=== PATIENT | female | born 1940 | race Caucasian/White ===

== ENCOUNTER → 2016-09-30 | Outpatient (CLI) | payer MEDICARE ==
--- NOTE | 2016-09-30 22:12 | US ---
EXAMINATION TYPE: US kidneys/renal and bladder DATE OF EXAM: 09/30/2016 2:41 PM COMPARISON: NONE CLINICAL HISTORY: 75-year-old female Right Flank Pain R10.9, intermittently; UTI with hematuria TECHNIQUE: Multiple sonographic images of the kidneys and bladder were obtained. FINDINGS: Right Kidney: 8.3 x 4.4 x 3.6 cm without hydronephrosis. There is a 1.1 cm echogenic lesion in the u pper pole. Left Kidney: 9.4 x 6.0 x 5.4 cm without hydronephrosis. No gross abnormality of the urine distended bladder. Both ureteral jets are visualized. Post Void Residual Volume: 4.1 mL, within normal limits. IMPRESSION: 1. No hydronephrosis. 2. No sonographic evidence for urinary retention. 3. A 1.1 cm echogenic lesion in the right upper pole. Differential considerations include an AML and a cortical defect with chronic scarring. As RCC can uncommonly present as an echogenic lesion, six-mo nth follow-up exam is recommended to reassess.
== END | disposition home or self-care (01) ==
LOC: RADUSWWP 13:09
PROVIDERS: ATTEND Internal Medicine
DX: N28.9 Disorder of kidney and ureter, unspecified (principal); R10.9 Unspecified abdominal pain
CPT/HCPCS: 76770

== ENCOUNTER → 2016-11-22 | Outpatient (CLI) | payer MEDICARE ==
[2016-11-22 16:47] LABS: Blood Urea Nitrogen 19 mg/dL (7-17); Non-African American GFR(MDRD) >60 (>60 ml/min/1.73 sqM)
--- NOTE | 2016-11-22 21:44 | CT ---
EXAMINATION TYPE: CT abdomen wo/w con DATE OF EXAM: 11/22/2016 COMPARISON: Ultrasound 09/30/2016 HISTORY: 75-year-old female with renal mass found on ultrasound. TECHNIQUE: Contiguous axial scanning of the abdomen before and after administration of 100 ml Omnipaq ue 300 IV contrast. Delayed images through the kidneys and coronal/sagittal reconstructions performe d. CT DLP: 471.40 mGycm Automated exposure control for dose reduction was used. FINDINGS: Heart is normal size without pericardial effusion. There is some patchy opacity in the inferior lingu la and right-sided Bochdalek hernia. No pleural effusion. A few subcentimeter hypodensities within the liver are too small for accurate CT characterization, li shira represent cysts. Cholecystectomy clips are present. Mild prominence to the bile duct with normal distal tapering likely on the basis of postcholecystecto my status. Portal venous system is patent. Mild diffuse low-density thickening of both adrenal glands. There may be some subtle underlying nodul arity on the left that could represent a lipid rich adrenal adenoma. A couple subcentimeter cortical hypodensities lower pole left kidney too small fractured CT character ization, probable cysts. Additional subcentimeter hypodensity posterior upper to midpole left kidney is similar. There is a small cortical defect posterior upper pole right kidney with associated calcification. No nephrolithiasis or hydronephrosis. Spleen and pancreas show no gross abnormality. No dilated small bowel, free fluid, or free air. No mesenteric or retroperitoneal lymphadenopathy. Mild atherosclerotic calcifications within the abdominal aorta. There is ectasia of the lower thoraci c aorta at 2.7 cm. Moderate scattered stool burden without pericolonic inflammatory change. Bones: No osseous destructive process. Mild multilevel degenerative disc disease. IMPRESSION: 1. THE RIGHT UPPER POLE RENAL LESION SEEN ON ULTRASOUND APPEARS TO CORRESPOND TO AN AREA OF CORTICAL SCARRING AND ASSOCIATED CALCIFICATIONS. NO SUSPICIOUS MASS IS SEEN. A 12 MONTH FOLLOW-UP ULTRASOUND C AN BE PERFORMED A PRECAUTIONARY MEASURE. 2. A FEW SUBCENTIMETER HYPODENSITIES IN THE LEFT KIDNEY ARE TOO SMALL FOR ACCURATE CT CHARACTERIZATIO N AND PROBABLY REPRESENT TINY CORTICAL CYSTS. 3. SOME PATCHY ATELECTASIS OR INFILTRATE IN THE INFERIOR LINGULA PARTIALLY SEEN.
== END | disposition home or self-care (01) ==
LOC: RADCTMAIN 16:06
PROVIDERS: ATTEND Urology
DX: N28.89 Other specified disorders of kidney and ureter (principal)
CPT/HCPCS: 82565; 84520; 74170; 36415; Q9967

== ENCOUNTER 2017-07-05 16:28 | Emergency (ER) | payer MEDICARE ==
[2017-07-05] MEDS ORDERED: LORazepam 2 MG/ML INJ IV STA (16:55)
[2017-07-05] MEDS ORDERED: hydrALAZINE HCL 20 MG/ML 1 ML VIAL IVP STA (16:56)
--- NOTE | 2017-07-05 16:59 | ED ---
General Adult HPI - General Chief complaint: Recheck/Abnormal Lab/Rx Stated complaint: Hypertension Time Seen by Provider: 07/05/17 16:30 Source: patient, RN notes reviewed Mode of arrival: ambulatory Limitations: no limitations - History of Present Illness Initial comments: This is a 76-year-old female presents emergency Department because her blood pressures high. Patient states she went to the foot doctor today and they indicated her blood pressure was high enough that she should get it checked today. Patient states she was a little bit lightheaded this morning but aside from that had no symptoms. Patient denies headache patient denies numbness or weakness. Patient denies any chest pain palpitations difficulty breathing or shortness of breath. Patient denies any peripheral edema patient denies any calf pain. Patient denies any abdominal pain. Patient denies being ill recently patient denies any recent fever chills or cough. - Related Data Home Medications Medication Instructions Recorded Confirmed Acetaminophen [Tylenol Arthritis] 650 mg PO BID PRN 07/05/17 07/05/17 Cholecalciferol (Vitamin D3) 2,000 unit PO DAILY 07/05/17 07/05/17 [Vitamin D3] Diltiazem HCl [Cartia Xt] 180 mg PO DAILY 07/05/17 07/05/17 Levothyroxine Sodium [Synthroid] 75 mcg PO DAILY 07/05/17 07/05/17 Multivitamins, Thera [Multivitamin 1 tab PO DAILY 07/05/17 07/05/17 (formulary)] Oyster Shell Calcium 500 mg PO DAILY 07/05/17 07/05/17 Pravastatin Sodium [Pravachol] 20 mg PO HS 07/05/17 07/05/17 busPIRone HCL 15 mg PO TID PRN 07/05/17 07/05/17 Allergies Allergy/AdvReac Type Severity Reaction Status Date / Time No Known Allergies Allergy Verified 07/05/17 17:14 Review of Systems ROS Statement: Those systems with pertinent positive or pertinent negative responses have been documented in the HPI. ROS Other: All systems not noted in ROS Statement are negative. Past Medical History Past Medical History: Hypertension History of Any Multi-Drug Resistant Organisms: None Reported Past Surgical History: No Surgical Hx Reported Past Psychological History: No Psychological Hx Reported Smoking Status: Never smoker Past Alcohol Use History: None Reported Past Drug Use History: None Reported General Exam - General Exam Comments Initial Comments: GENERAL: Patient is well-developed and well-nourished. Patient is nontoxic and well- hydrated and is in no acute distress. ENT: Neck is soft and supple. No significant lymphadenopathy is noted. Oropharynx is clear. Moist mucous membranes. Neck has full range of motion without eliciting any pain. EYES: The sclera were anicteric and conjunctiva were pink and moist. Extraocular movements were intact and pupils were equal round and reactive to light. Eyelids were unremarkable. PULMONARY: Unlabored respirations. Good breath sounds bilaterally. No audible rales rhonchi or wheezing was noted. CARDIOVASCULAR: There is a regular rate and rhythm without any murmurs gallops or rubs. ABDOMEN: Soft and nontender with normal bowel sounds. No palpable organomegaly was noted. There is no palpable pulsatile mass. SKIN: Skin is clear with no lesions or rashes and otherwise unremarkable. NEUROLOGIC: Patient is alert and oriented x3. Cranial nerves II through XII are grossly intact. Motor and sensory are also intact. Normal speech, volume and content. Symmetrical smile. MUSCULOSKELETAL: Normal extremities with adequate strength and full range of motion. No lower extremity swelling or edema. No calf tenderness. LYMPHATICS: No significant lymphadenopathy is noted PSYCHIATRIC: Normal psychiatric evaluation. Limitations: no limitations Course Vital Signs 07/05/17 07/05/17 07/05/17 16:33 16:44 17:34 Temperature 97.9 F Pulse Rate 85 78 81 Respiratory 18 17 Rate Blood Pressure 201/82 216/99 160/71 O2 Sat by Pulse 97 96 97 Oximetry 07/05/17 18:03 Temperature Pulse Rate 87 Respiratory 16 Rate Blood Pressure 156/73 O2 Sat by Pulse 95 Oximetry Medical Decision Making - Medical Decision Making EKG shows normal sinus rhythm at 74 bpm NC interval is 152 QRS is 78 QT interval is 400 QTC is 444. Patient's EKG shows no ST segment elevation or depression or T wave abnormalities are noted. I will begin to reevaluate the patient she was asymptomatic at this time. Patient blood pressure was 156 systolic and she states she is always in the 150s normally. Patient will follow-up with her primary medical care doctor. - Lab Data Result diagrams: 07/05/17 17:01 07/05/17 17:01 Lab Results 07/05/17 07/05/17 07/05/17 Range/Units 17:01 17:01 17:01 WBC 7.3 (3.8-10.6) k/uL RBC 4.38 (3.80-5.40) m/uL Hgb 13.7 (11.4-16.0) gm/dL Hct 42.6 (34.0-46.0) % MCV 97.3 (80.0-100.0) fL MCH 31.3 (25.0-35.0) pg MCHC 32.2 (31.0-37.0) g/dL RDW 12.2 (11.5-15.5) % Plt Count 260 (150-450) k/uL Neutrophils % 48 % Lymphocytes % 38 % Monocytes % 6 % Eosinophils % 5 % Basophils % 1 % Neutrophils # 3.5 (1.3-7.7) k/uL Lymphocytes # 2.8 (1.0-4.8) k/uL Monocytes # 0.4 (0-1.0) k/uL Eosinophils # 0.3 (0-0.7) k/uL Basophils # 0.1 (0-0.2) k/uL PT (9.0-12.0) sec INR (<1.2) APTT (22.0-30.0) sec Sodium 138 (137-145) mmol/L Potassium 4.4 (3.5-5.1) mmol/L Chloride 100 (98-107) mmol/L Carbon Dioxide 25 (22-30) mmol/L Anion Gap 13 mmol/L BUN 16 (7-17) mg/dL Creatinine 0.68 (0.52-1.04) mg/dL Est GFR (MDRD) Af Amer >60 (>60 ml/min/1.73 sqM) Est GFR (MDRD) Non-Af >60 (>60 ml/min/1.73 sqM) Glucose 98 (74-99) mg/dL Calcium 9.8 (8.4-10.2) mg/dL Magnesium 1.8 (1.6-2.3) mg/dL Total Bilirubin 0.4 (0.2-1.3) mg/dL AST 21 (14-36) U/L ALT 23 (9-52) U/L Alkaline Phosphatase 54 (38-126) U/L Total Creatine Kinase 107 (30-135) U/L CK-MB (CK-2) 1.7 (0.0-2.4) ng/mL CK-MB (CK-2) Rel Index 1.6 Troponin I <0.012 (0.000-0.034) ng/mL Total Protein 6.8 (6.3-8.2) g/dL Albumin 4.2 (3.5-5.0) g/dL 07/05/17 Range/Units 17:01 WBC (3.8-10.6) k/uL RBC (3.80-5.40) m/uL Hgb (11.4-16.0) gm/dL Hct (34.0-46.0) % MCV (80.0-100.0) fL MCH (25.0-35.0) pg MCHC (31.0-37.0) g/dL RDW (11.5-15.5) % Plt Count (150-450) k/uL Neutrophils % % Lymphocytes % % Monocytes % % Eosinophils % % Basophils % % Neutrophils # (1.3-7.7) k/uL Lymphocytes # (1.0-4.8) k/uL Monocytes # (0-1.0) k/uL Eosinophils # (0-0.7) k/uL Basophils # (0-0.2) k/uL PT 9.9 (9.0-12.0) sec INR 1.0 (<1.2) APTT 23.3 (22.0-30.0) sec Sodium (137-145) mmol/L Potassium (3.5-5.1) mmol/L Chloride (98-107) mmol/L Carbon Dioxide (22-30) mmol/L Anion Gap mmol/L BUN (7-17) mg/dL Creatinine (0.52-1.04) mg/dL Est GFR (MDRD) Af Amer (>60 ml/min/1.73 sqM) Est GFR (MDRD) Non-Af (>60 ml/min/1.73 sqM) Glucose (74-99) mg/dL Calcium (8.4-10.2) mg/dL Magnesium (1.6-2.3) mg/dL Total Bilirubin (0.2-1.3) mg/dL AST (14-36) U/L ALT (9-52) U/L Alkaline Phosphatase (38-126) U/L Total Creatine Kinase (30-135) U/L CK-MB (CK-2) (0.0-2.4) ng/mL CK-MB (CK-2) Rel Index Troponin I (0.000-0.034) ng/mL Total Protein (6.3-8.2) g/dL Albumin (3.5-5.0) g/dL Disposition Clinical Impression: Hypertensive urgency Disposition: HOME SELF-CARE Condition: Good Instructions: Hypertension (ED) Additional Instructions: Patient needs to follow-up with her primary medical care doctor. Patient needs to take her blood pressure before every meal and before bed and record this so the primary medical care doctor can see her blood pressure over few days. Referrals: Georgia Mtz MD [Primary Care Provider] - 1-2 days Time of Disposition: 18:10
[2017-07-05 17:10] LABS: Basophils # (A) 0.1 k/uL (0-0.2); Basophils % (A) 1 %; Eosinophils # (A) 0.3 k/uL (0-0.7); Eosinophils % (A) 5 %; HCT 42.6 % (34.0-46.0); HGB 13.7 gm/dL (11.4-16.0); Lymphocytes # (A) 2.8 k/uL (1.0-4.8); Lymphocytes % (A) 38 %; MCH 31.3 pg (25.0-35.0); MCHC 32.2 g/dL (31.0-37.0); MCV 97.3 fL (80.0-100.0); Mean Platelet Volume 6.9; Monocytes # (A) 0.4 k/uL (0-1.0); Monocytes % (A) 6 %; Neutrophils # (A) 3.5 k/uL (1.3-7.7); Neutrophils % (A) 48 %; Platelet Count 260 k/uL (150-450); RBC 4.38 m/uL (3.80-5.40); RDW 12.2 % (11.5-15.5); WBC 7.3 k/uL (3.8-10.6)
[2017-07-05 17:18] LABS: Partial Thromboplastin Time 23.3 sec (22.0-30.0); Prothrombin Time 9.9 sec (9.0-12.0)
[2017-07-05 17:22] LABS: ALT 23 U/L (9-52); AST 21 U/L (14-36); Albumin 4.2 g/dL (3.5-5.0); Alkaline Phosphatase 54 U/L (38-126); Anion Gap 13 mmol/L; Blood Urea Nitrogen 16 mg/dL (7-17); Calcium 9.8 mg/dL (8.4-10.2); Carbon Dioxide 25 mmol/L (22-30); Chloride 100 mmol/L (98-107); Glucose 98 mg/dL (74-99); Magnesium 1.8 mg/dL (1.6-2.3); Potassium 4.4 mmol/L (3.5-5.1); Sodium 138 mmol/L (137-145); Total Bilirubin 0.4 mg/dL (0.2-1.3); Total Protein 6.8 g/dL (6.3-8.2)
[2017-07-05 17:31] LABS: Creatine Kinase 107 U/L (30-135)
[2017-07-05 17:43] LABS: Creatine Kinase MB 1.7 ng/mL (0.0-2.4); Troponin I <0.012 ng/mL (0.000-0.034)
--- NOTE | 2017-07-05 17:46 | XR ---
EXAMINATION TYPE: XR chest 2V DATE OF EXAM: 07/05/2017 COMPARISON: NONE HISTORY: Chest pain and hypertension TECHNIQUE: Frontal and lateral views of the chest are obtained. FINDINGS: There is no focal air space opacity, pleural effusion, or pneumothorax seen. The cardiac silhouette size is within normal limits. There are overlying cardiac leads. Patient is rotated. Promi nent lung volume may be indicative of COPD. There is eventration of the hemidiaphragms. Minimal patch y density may represent subsegmental atelectasis at the lung bases. The osseous structures are inta ct. IMPRESSION: Suspect subsegmental atelectasis at the lung bases. Follow-up as indicated.
[2017-07-05 18:36] VITALS: BP 155/74; RESP 18; TEMP 98.3
[2017-07-05 18:39] VITALS: PULSE 87
== END 2017-07-05 18:44 | disposition home or self-care (01) ==
LOC: EC 16:28
DX: I16.0 Hypertensive urgency (principal); I10 Essential (primary) hypertension; R42 Dizziness and giddiness; Z79.899 Other long term (current) drug therapy
CPT/HCPCS: 36415; 93005; 80053; 82550; 82553; 83735; 84484; 85025; 85610; 85730; 71046; 99283; 96374; 96375; J2060; J0360

== ENCOUNTER → 2018-06-10 | Outpatient (CLI) | payer MEDICARE ==
[2018-06-10 09:01] LABS: Basophils # (A) 0.1 k/uL (0-0.2); Basophils % (A) 1 %; Eosinophils # (A) 0.2 k/uL (0-0.7); Eosinophils % (A) 3 %; HCT 43.7 % (34.0-46.0); HGB 14.1 gm/dL (11.4-16.0); Lymphocytes % (A) 29 %; MCH 31.5 pg (25.0-35.0); MCHC 32.3 g/dL (31.0-37.0); MCV 97.7 fL (80.0-100.0); Mean Platelet Volume 6.2; Monocytes # (A) 0.4 k/uL (0-1.0); Monocytes % (A) 5 %; Neutrophils # (A) 4.1 k/uL (1.3-7.7); Neutrophils % (A) 59 %; Platelet Count 302 k/uL (150-450); RBC 4.47 m/uL (3.80-5.40); RDW 12.7 % (11.5-15.5); WBC 6.9 k/uL (3.8-10.6)
[2018-06-10 09:13] LABS: Potassium 4.6 mmol/L (3.5-5.1)
== END | disposition home or self-care (01) ==
LOC: LABPAT 08:04
PROVIDERS: ATTEND Obstetrics & Gynecology
DX: Z01.818 Encounter for other preprocedural examination (principal); N81.10 Cystocele, unspecified; I10 Essential (primary) hypertension; Z01.812 Encounter for preprocedural laboratory examination
CPT/HCPCS: 36415; 80051; 82565; 84520; 85025; 87077; 87086; 87186; 93005

== ENCOUNTER 2018-06-19 07:31 | Day surgery (SDC) | payer MEDICARE ==
[~2018-06-19 07:31] MED LIST: DEXAMETHASONE SOD PHOSPHATE 10 MG/ML 1 ML VIAL IV ONE; HYDROmorphone 0.5 MG/0.5 ML SYRINGE IVP PRN; MIDAZOLAM (PF) 2 MG/2 ML VIAL IV PRN; ONDANSETRON 4 MG/2 ML VIAL IVP ONE; ceFAZolin IN SWFI 2 GM/20 ML SYRINGE IVP ONE
[2018-06-19 08:02] VITALS: RESP 16
[2018-06-19] MEDS ORDERED: LIDOCAINE 1% 20 ML VIAL (10MG/ML) FOR IV START SQ ONE (08:15)
[2018-06-19] MEDS: LACTATED RINGERS 1,000 ML IV SCH ×2 (08:15→19:30)
[2018-06-19] MEDS ORDERED: MIDAZOLAM 2 MG/2 ML VIAL ONE (09:28)
[2018-06-19] MEDS ORDERED: LIDOCAINE 1% INJ 10MG/ML (20 ML MDV) ONE (09:28)
[2018-06-19] MEDS ORDERED: PROPOFOL 10 MG/ML 20 ML VIAL IV ONE (09:28)
[2018-06-19] MEDS ORDERED: MORPHINE SULFATE (PF) 0.3 MG/0.3 ML SYR ONE (09:28)
[2018-06-19] MEDS ORDERED: ePHEDrine SULFATE/0.9% NACL/PF 50 MG/5 ML SYRINGE IV ONE (09:28)
[2018-06-19] MEDS ORDERED: VASOPRESSIN 20 UNIT/ML 1 ML VIAL IM ONE (09:49)
[2018-06-19] MEDS ORDERED: BACITRACIN 500 UNIT/GM OINT 28.4 GM TUBE TOPICAL ONE (10:06)
--- NOTE | 2018-06-19 10:12 | P.OP ---
Date of Procedure: 06/19/18 Preoperative Diagnosis: Symptomatic grade 3 cystocele Postoperative Diagnosis: Same Procedure(s) Performed: Anterior colporrhaphy Anesthesia: spinal Surgeon: Janet Sofia Sausage Canner #1: Ragini Cassidy Estimated Blood Loss (ml): 25 IV fluids (ml): 500 Urine output (ml): 200 Pathology: none sent Condition: stable Disposition: PACU Operative Findings: Grade 2 rectocele, asymptomatic Description of Procedure: Patient is brought to the operating room where a spinal with Duramorph is administered. She's placed in the dorsal lithotomy position. The vaginal vault and perineal bodies are all prepped and draped in usual sterile fashion. The appropriate timeout is performed to assure proper patient and procedural identification. The bladder is drained for approximately 200 mL of clear yellow urine. Weighted speculum was placed into the vagina and the uterosacral cardinal ligament dimples are identified and grasped with Allis clamps. Please note that antibiotics are given prophylactically, and stockings applied to the legs. A scalpel is used to incise the tissue between the 2 Allis clamps. The anterior vaginal mucosa is injected with a dilute Pitressin solution. Metzenbaum scissors are used in the midline to undermine the mucosa to the apex of the defects, approximate 1.5 cm inferior to the urethra. The edges of the mucosa are held with Allis clamps and a fanlike fashion. A sponge rolled finger is used to sweep the overlying mucosa from the underlying fascial plane. 2-0 Vicryl is used in the midline and interrupted fashion to bring the fascial edges together, thereby completely reducing the cystocele. The redundant vaginal mucosa is trimmed with Metzenbaum scissors. Sanders catheter is placed, urine is clear. The mucosa is reapproximated in a running locking stitch of 2-0 Vicryl. The vagina is packed with a iodophor gauze with basic tracing. Urine is clear. Total estimated blood loss 25 mL's. Incidentally, a small grade 2 rectocele is noted. This was asymptomatic and not surgically corrected. All sponge needle and enhancement counts are correct at the end of the procedure. Patient is brought back to the recovery room in very good condition with stable vital signs including blood pressure 98/54, pulse 63.
[2018-06-19] MEDS ORDERED: diphenhydrAMINE 50 MG/ML 1 ML VIAL IVP PRN (10:13)
[2018-06-19] MEDS ORDERED: SIMETHICONE 80 MG CHEWABLE PO PRN (10:13)
[2018-06-19 11:22] VITALS: BMI 23.6
[2018-06-19] MEDS ORDERED: NALBUPHINE 10 MG/ML (1 ML AMP) IV PRN (13:49)
[2018-06-19] MEDS ORDERED: NALOXONE 0.4 MG/ML 1 ML VIAL IV PRN (13:49)
[2018-06-19] MEDS: IBUPROFEN 600 MG TAB PO PRN (19:29)
[2018-06-19] MEDS ORDERED: ACETAMINOPHEN TAB 500 MG TAB PO PRN (21:13)
[2018-06-20] MEDS: IBUPROFEN 600 MG TAB PO PRN (06:50)
--- NOTE | 2018-06-20 07:15 | P.PN ---
Progress Note - Text Progress Note Date: 06/20/18 Patient's postop day 1 from cystocele repair with Duramorph spinal. She is doing well. She is able to ambulate. Normal lower extremities, no lower extremity numbness or tingling. Sanders catheter still in place per surgical team. She has minimal pruritus. Site is clean and dry. Anesthesia will sign off please contact us if she had any issues or questions.
--- NOTE | 2018-06-20 07:27 | P.DS ---
Providers Date of admission: t This is a 77-year-old white female who presented with an increasingly symptomatic cystocele. After options were discussed, she elected to proceed with surgical repair. Please see dictated history and physical for details. She underwent a cystocele repair under my care yesterday. Estimated blood loss 25 mL's. Vagina was packed with iodoform gauze, Sanders catheter placed. Surgery was unremarkable, please see dictated operative note for details. This morning the Sanders catheter has been removed. Vaginal packing is removed. Patient is enjoying a regular diet for breakfast. We will proceed with void, we will measure the void and the postvoid residual. Plan is for discharge home later today when residual less than 100. Patient is judged to be in very good condition for discharge home. She will follow-up with me in the office in 2 weeks. We have reminded her no intercourse , tampons or douching. She will continue taking her home meds upon discharge. I've asked her to call me with any fevers shakes or chills, foul smelling or bloody vaginal drainage, with the passage of large blood clots, with any pain not alleviated by [id number]-[id number] products, with any urinary retention, or indeed with any concerns. Extremities are negative. Chest is clear. Attending physician: Janet Sofia Primary care physician: [facility] Course: This is a 77-year-old white female who presented with an increasingly symptomatic cystocele. After options were discussed, she elected to proceed with surgical repair. Please see my dictated history and physical for details. Patient underwent a cystocele repair under my care yesterday. There was an estimated blood loss recorded of 25 mL's. She did well intraoperatively, the vagina was packed with iodoform gauze Sanders catheter was placed. Please see dictated operative note for details. This morning the patient is doing well. Sanders catheter and vaginal packing had been removed. She is enjoying a regular diet for breakfast. We are awaiting spontaneous void, which will be measured along with post void residual. Plan is for discharge home later today pending residual volumes. Patient is judged to be in very good condition for discharge home. She will follow-up with me in the office in 2 weeks. I have reminded her no intercourse , tampons or douching. Clean pad as needed. Vnlq-gaa-cawzsmw products will be used as needed for pain, Aleve ibuprofen or Advil. She will call me with any fevers shakes or chills, urinary retention, vaginal bleeding, with any pain not alleviated by njfv-xwn-apjgshx products, or indeed with any concerns. Patient Condition at Discharge: Good Plan - Discharge Summary Discharge Rx Participant: No New Discharge Prescriptions: No Action Oyster Shell Calcium 500 mg PO DAILY Multivitamins, Thera [Multivitamin (formulary)] 1 tab PO DAILY Levothyroxine Sodium [Synthroid] 75 mcg PO DAILY Acetaminophen [Tylenol Arthritis] 650 mg PO BID PRN PRN Reason: Pain busPIRone HCL 15 mg PO TID PRN PRN Reason: Anxiety Pravastatin Sodium [Pravachol] 20 mg PO HS Cholecalciferol (Vitamin D3) [Vitamin D3] 2,000 unit PO DAILY Omeprazole 20 mg PO DAILY Losartan Potassium [Cozaar] 100 mg PO DAILY Diltiazem HCl [Cartia Xt] 120 mg PO DAILY Sulfamethox-Tmp 800-160Mg [Bactrim DS 800-160 mg] 1 tab PO Q12HR [id number] [Excedrin] 2 each PO Q6HR PRN PRN Reason: Pain Discharge Medication List Acetaminophen [Tylenol Arthritis] 650 mg PO BID PRN 07/05/17 [History] Cholecalciferol (Vitamin D3) [Vitamin D3] 2,000 unit PO DAILY 07/05/17 [History] Levothyroxine Sodium [Synthroid] 75 mcg PO DAILY 07/05/17 [History] Multivitamins, Thera [Multivitamin (formulary)] 1 tab PO DAILY 07/05/17 [History ] Oyster Shell Calcium 500 mg PO DAILY 07/05/17 [History] Pravastatin Sodium [Pravachol] 20 mg PO HS 07/05/17 [History] busPIRone HCL 15 mg PO TID PRN 07/05/17 [History] [id number] 151-200-10Wf [Excedrin] 2 each PO Q6HR PRN 06/14/18 [History] Diltiazem HCl [Cartia Xt] 120 mg PO DAILY 06/14/18 [History] Losartan Potassium [Cozaar] 100 mg PO DAILY 06/14/18 [History] Omeprazole 20 mg PO DAILY 06/14/18 [History] Sulfamethox-Tmp 800-160Mg [Bactrim DS 800-160 mg] 1 tab PO Q12HR 06/14/18 [ History] Follow up Appointment(s)/Referral(s): Janet Sofia MD [STAFF PHYSICIAN] - 2 Weeks Discharge Disposition: HOME SELF-CARE
[2018-06-20 07:59] VITALS: BP 128/78; PULSE 73; TEMP 97.5
== END 2018-06-20 10:30 | disposition home or self-care (01) ==
LOC: OR 07:31 → EDSTATUS 09:10 → 4FBP 10:14 → OR 06-20 10:30
PROVIDERS: ATTEND Obstetrics & Gynecology
DX: N81.10 Cystocele, unspecified (principal); N81.6 Rectocele; I10 Essential (primary) hypertension; F41.9 Anxiety disorder, unspecified; M19.90 Unspecified osteoarthritis, unspecified site; K21.9 Gastro-esophageal reflux disease without esophagitis; E04.9 Nontoxic goiter, unspecified; M85.80 Other specified disorders of bone density and structure, unspecified site; Z90.710 Acquired absence of both cervix and uterus; Z79.2 Long term (current) use of antibiotics; Z79.82 Long term (current) use of aspirin; Z79.890 Hormone replacement therapy; Z79.899 Other long term (current) drug therapy
CPT/HCPCS: 57240; 86900; 86901; 86850; J1100; J2405; J0690

== ENCOUNTER 2019-12-18 20:15 | Emergency (ER) | payer MEDICARE ==
[2019-12-18 20:21] VITALS: RESP 18; TEMP 98
--- NOTE | 2019-12-18 20:48 | ED ---
General Adult HPI - General Chief complaint: Urogenital Stated complaint: Post Op Unable to Void Time Seen by Provider: 12/18/19 20:24 Source: patient, family, RN notes reviewed Mode of arrival: wheelchair - History of Present Illness Initial comments: 78-year-old female with a past medical history of hypertension presents to the emergency room for a chief complaint of lower abdominal discomfort. Patient reports that she had a uterine prolapse surgery done laparoscopically and vaginally yesterday at [facility] [place]. Patient was released today around 2 PM. Family reports that since that time patient has not had any urine output. Patient has a suprapubic catheter placed. Patient states that she feels very bloated and feels constipated. States she is passing gas. States her last bowel movement was 2 days ago. Patient reports she was given Toradol in the hospital and has not been on opioids. Patient has not had any fevers or chills.Patient has no other complaints at this time including shortness of breath, chest pain, abdominal pain, nausea or vomiting, headache, or visual changes. - Related Data Home Medications Medication Instructions Recorded Confirmed Levothyroxine Sodium [Synthroid] 75 mcg PO DAILY 07/05/17 12/18/19 Multivitamins, Thera [Multivitamin 1 tab PO DAILY 07/05/17 12/18/19 (formulary)] Pravastatin Sodium [Pravachol] 20 mg PO HS 07/05/17 12/18/19 RX: busPIRone HCL 15 mg PO BID 07/05/17 12/18/19 Losartan Potassium [Cozaar] 100 mg PO 1200 06/14/18 12/18/19 RX: Omeprazole 20 mg PO DAILY 06/14/18 12/18/19 Diltiazem HCl [Cartia Xt] 180 mg PO DAILY 12/18/19 12/18/19 HYDROcodone/APAP 5-325MG [[place] 1 tab PO BID PRN 12/18/19 12/18/19 5-325] RX: Cholecalciferol [Vitamin D3 1,000 unit PO DAILY 12/18/19 12/18/19 (25 Mcg = 1000 Iu)] RX: Docusate [Colace] 100 mg PO BID PRN 12/18/19 12/18/19 RX: Ibuprofen [Motrin] 600 mg PO Q6H PRN 12/18/19 12/18/19 Ubidecarenone [Co Q-10] 100 mg PO DAILY 12/18/19 12/18/19 Allergies Allergy/AdvReac Type Severity Reaction Status Date / Time No Known Allergies Allergy Verified 12/18/19 20:21 Review of Systems ROS Statement: Those systems with pertinent positive or pertinent negative responses have been documented in the HPI. ROS Other: All systems not noted in ROS Statement are negative. Past Medical History Past Medical History: Hypertension Additional Past Medical History / Comment(s): VARICOSE VEINS, KLEBSIELLA PNEUMONIAE IN URINE- TAKING RX PER DR PERSAUD., CYSTOCELE History of Any Multi-Drug Resistant Organisms: None Reported Date of last positivie culture/infection: None MDRO Source:: None Past Surgical History: No Surgical Hx Reported Additional Past Surgical History / Comment(s): surgery for prolapsed uterus Past Anesthesia/Blood Transfusion Reactions: Postoperative Nausea & Vomiting (PONV) Past Psychological History: No Psychological Hx Reported Smoking Status: Never smoker Past Alcohol Use History: None Reported Past Drug Use History: None Reported - Past Family History Mother Family Medical History: Cancer Additional Family Medical History / Comment(s): UTERINE CANCER Brother(s) Family Medical History: Cancer Additional Family Medical History / Comment(s): PROSTATE CANCER Sister(s) Family Medical History: Cancer Additional Family Medical History / Comment(s): BONE AND COLON CANCER General Exam General appearance: alert, in no apparent distress Head exam: Present: atraumatic, normocephalic, normal inspection Eye exam: Present: normal appearance, PERRL, EOMI. Absent: scleral icterus, conjunctival injection, periorbital swelling ENT exam: Present: normal exam, mucous membranes moist Neck exam: Present: normal inspection. Absent: tenderness, meningismus, lymphadenopathy Respiratory exam: Present: normal lung sounds bilaterally. Absent: respiratory distress, wheezes, rales, rhonchi, stridor Cardiovascular Exam: Present: regular rate, normal rhythm, normal heart sounds. Absent: systolic murmur, diastolic murmur, rubs, gallop, clicks GI/Abdominal exam: Present: soft, normal bowel sounds. Absent: distended, tenderness, guarding, rebound, rigid Course Vital Signs 12/18/19 12/18/19 20:17 22:24 Temperature 98 F Pulse Rate 83 89 Respiratory 18 Rate Blood Pressure 118/58 135/60 O2 Sat by Pulse 98 95 Oximetry Medical Decision Making - Medical Decision Making Vitals are stable. Abdomen is tender and distended. CBC is unremarkable. A C MP does show an elevation in amylase as well as hyponatremia of 126. patient was given a 500 mL bolus of normal saline. Urinalysis shows red blood cells which is likely secondary to patient's recent surgery. No obvious infection 150 mL of urine was obtained from suprapubic catheter. CT abdomen and pelvis was obtained and there is some descent of the rectum and vagina consistent with vaginal and r ectal prolapse, intact urinary bladder. There is a suprapubic peritoneal drainage catheter in good position. No evidence of pelvic abscess. There is a distended fluid-filled loops of large bowel consistent with large bowel ileus. Small amount of intraperitoneal fluid in the pericolic gutters. Pain is intractable at this time. Given ileus and hyponatremia patient will be transferred to [facility] where she had her surgery. Her family is agreeable to this. Dr Jeffers accepting physician. - Lab Data Result diagrams: 12/18/19 21:11 12/18/19 21:11 Lab Results 12/18/19 12/18/19 12/18/19 Range/Units 21:11 21:11 21:11 WBC 7.9 (3.8-10.6) k/uL RBC 3.73 L (3.80-5.40) m/uL Hgb 12.0 (11.4-16.0) gm/dL Hct 35.4 (34.0-46.0) % MCV 95.0 D (80.0-100.0) fL MCH 32.3 (25.0-35.0) pg MCHC 34.0 (31.0-37.0) g/dL RDW 12.4 (11.5-15.5) % Plt Count 329 (150-450) k/uL Neutrophils % Not Reportable Neutrophils % (Manual) 70 % Band Neutrophils % 23 % Lymphocytes % Not Reportable Lymphocytes % (Manual) 4 % Monocytes % Not Reportable Monocytes % (Manual) 3 % Eosinophils % Not Reportable Basophils % Not Reportable Neutrophils # Not Reportable Neutrophils # (Manual) 7.30 (1.3-7.7) k/uL Lymphocytes # Not Reportable Lymphocytes # (Manual) 0.32 L (1.0-4.8) k/uL Monocytes # Not Reportable Monocytes # (Manual) 0.24 (0-1.0) k/uL Eosinophils # Not Reportable Basophils # Not Reportable Nucleated RBCs 0 (0-0) /100 WBC Manual Slide Review Performed Hypochromasia (manual) Present Anisocytosis (manual) Present Sodium 126 L (137-145) mmol/L Potassium 3.6 (3.5-5.1) mmol/L Chloride 93 L (98-107) mmol/L Carbon Dioxide 23 (22-30) mmol/L Anion Gap 10 mmol/L BUN 23 H (7-17) mg/dL Creatinine 0.77 (0.52-1.04) mg/dL Est GFR (CKD-EPI)AfAm 84 (>60 ml/min/1.73 sqM) Est GFR (CKD-EPI)NonAf 73 (>60 ml/min/1.73 sqM) Glucose 129 H (74-99) mg/dL Calcium 8.9 (8.4-10.2) mg/dL Total Bilirubin 1.6 H (0.2-1.3) mg/dL AST 32 (14-36) U/L ALT 22 (4-34) U/L Alkaline Phosphatase 98 (38-126) U/L Total Protein 5.4 L (6.3-8.2) g/dL Albumin 3.3 L (3.5-5.0) g/dL Amylase 494 H* (30-110) U/L Lipase 90 (23-300) U/L Urine Color Dark Yellow Urine Appearance Cloudy H (Clear) Urine pH 5.5 (5.0-8.0) Ur Specific [place] 1.020 (1.001-1.035) Urine Protein Trace H (Negative) Urine Glucose (UA) Negative (Negative) Urine Ketones Negative (Negative) Urine Blood Large H (Negative) Urine Nitrite Negative (Negative) Urine Bilirubin Negative (Negative) Urine Urobilinogen 2.0 (<2.0) mg/dL Ur Leukocyte Esterase Trace H (Negative) Urine RBC >182 H (0-5) /hpf Urine WBC 16 H (0-5) /hpf Hyaline Casts 4 H (0-2) /lpf Urine Mucus Rare H (None) /hpf Disposition Clinical Impression: Postoperative abdominal pain, Paralytic ileus of large intestine, Hyponatremia, Elevated amylase Disposition: OTHER INSTITUTION NOT DEFINED Condition: Fair Is patient prescribed a controlled substance at d/c from ED?: No Referrals: Georgia Mtz MD [Primary Care Provider] - 1-2 days Time of Disposition: 23:51 - Out of Hospital Transfer - Req. Specs Out of Hospital Transfer - Requested Specifics: Other Emergency Center (Formerly [facility])
[2019-12-18] MEDS ORDERED: MORPHINE SULFATE 4 MG/ML SYRINGE IVP STA (21:13)
[2019-12-18] MEDS ORDERED: ONDANSETRON ODT 4 MG TAB PO STA (21:13)
[2019-12-18 21:29] LABS: Appearance,Urine Cloudy (Clear); Bilirubin,Urine Negative (Negative); Blood,Urine Large (Negative); Color,Urine Dark Yellow; Glucose,Urine (UA) Negative (Negative); Hyaline Casts,Urine 4 /lpf (0-2); Ketones,Urine Negative (Negative); Leukocyte Esterase,Urine Trace (Negative); Mucus,Urine Rare /hpf; Nitrite,Urine Negative (Negative); PH, Urine 5.5 (5.0-8.0); Protein,Urine Trace (Negative); RBC,Urine >182 /hpf (0-5); WBC,Urine 16 /hpf (0-5)
[2019-12-18 21:33] LABS: Albumin 3.3 g/dL (3.5-5.0); Calcium 8.9 mg/dL (8.4-10.2); Potassium 3.6 mmol/L (3.5-5.1); Total Bilirubin 1.6 mg/dL (0.2-1.3); Total Protein 5.4 g/dL (6.3-8.2)
--- NOTE | 2019-12-18 21:40 | XR ---
EXAMINATION TYPE: XR KUB DATE OF EXAM: 12/18/2019 COMPARISON: NONE HISTORY: Postop TECHNIQUE: 2 views supine FINDINGS: There is no sign of intestinal obstruction or pneumoperitoneum. There is pigtail drainage c atheter over the mid pelvis. There are clips from cholecystectomy. Lung bases are clear. There is no evidence of abdominal mass. There are no pathologic calcifications over the kidneys. IMPRESSION: Nonacute abdomen.
[2019-12-18 21:45] LABS: HCT 35.4 % (34.0-46.0); MCH 32.3 pg (25.0-35.0); Mean Platelet Volume 7.2; Platelet Count 329 k/uL (150-450); RBC 3.73 m/uL (3.80-5.40); RDW 12.4 % (11.5-15.5); WBC 7.9 k/uL (3.8-10.6)
[2019-12-18] MEDS ORDERED: SODIUM CHLORIDE 0.9% 500 ML 500 ML IV STA (22:08)
[2019-12-18 22:23] LABS: Band Neutrophils % 23 %; Lymphocytes # (M) 0.32 k/uL (1.0-4.8); Monocytes # (M) 0.24 k/uL (0-1.0); Neutrophils % (M) 70 %; Nucleated Red Blood Cells 0 /100 WBC (0-0); Total Cells Counted 100
[2019-12-18 22:24] LABS: Anisocytosis (M) Present; Hypochromasia (M) Present
--- NOTE | 2019-12-18 22:40 | CT ---
EXAMINATION TYPE: CT abdomen pelvis w con DATE OF EXAM: 12/18/2019 COMPARISON: 11/22/2016 HISTORY: unable to urinate post-op prolapsed uterus procedure. CT DLP: 712.7 mGycm Automated exposure control for dose reduction was used. CONTRAST: Performed with IV Contrast, patient injected with 100 mL of Isovue 300. There is some patchy atelectasis at the lung bases. Heart is enlarged. There is no pericardial effusi on. There are clips from cholecystectomy. Liver shows 1 cm cyst in the anterior right lobe. There is mild dilation of the common bile duct up to 1.7 cm. Intrahepatic bile ducts are not significantly dil ated. Spleen is intact. The stomach is intact. There is small hiatal hernia. There is no evidence of pancreatic mass. There is no adrenal mass. Kidneys show satisfactory contrast opacification. There is no hydronephrosi s. Ureters are not dilated. There is no retroperitoneal adenopathy. There is suprapubic drainage cath eter in the anterior lower abdomen. There is soft tissue subcutaneous air bubbles consistent with rec ent surgery in the anterior lower abdomen. There are a few air bubbles in the peritoneal cavity anter ior to the urinary bladder. Bladder distends smoothly. There is no inguinal hernia. I see no evidence of a pelvic mass. There is some descent of the rectum. There is probably distended of the vagina als o. I see no mesenteric edema. There is no ascites. There is retained fluid in the ascending colon and tr ansverse colon. I see no intestinal wall thickening. Appendix is not definitely seen. No definite sig n of thickened appendix. Lumbar vertebra have normal alignment. There is no compression fracture. There is no significant disc space narrowing. Bony pelvis is intact. The hip joints appear intact. There is tiny amount of fluid in the right and left paracolic gutter. IMPRESSION: There is some descent of the rectum and vagina consistent with vaginal and rectal prolapse. Intact ur inary bladder. Suprapubic peritoneal drainage catheter in the lower anterior pelvis in good position. No evidence of pelvic abscess. Patchy atelectasis at both lung bases. Distended fluid-filled loops of large bowel consistent with large bowel ileus. Small amount of intrap eritoneal fluid in the paracolic gutters.
[2019-12-19] MEDS ORDERED: METOCLOPRAMIDE 5 MG/ML 2 ML VIAL IVP STA (00:16)
[2019-12-19] MEDS ORDERED: ONDANSETRON 4 MG/2 ML VIAL IVP STA (00:16)
[2019-12-19] MEDS ORDERED: HYDROmorphone 0.5 MG/0.5 ML SYRINGE IVP STA (00:16)
[2019-12-19 00:49] VITALS: BP 109/92; PULSE 105
== END 2019-12-19 01:05 | disposition other institution (70) ==
LOC: EC 20:15
DX: K56.0 Paralytic ileus (principal); G89.18 Other acute postprocedural pain; E87.1 Hypo-osmolality and hyponatremia; R74.8 Abnormal levels of other serum enzymes; I10 Essential (primary) hypertension; Z79.899 Other long term (current) drug therapy; Z96.0 Presence of urogenital implants; R34 Anuria and oliguria
CPT/HCPCS: 51798; 36415; 80053; 82150; 83690; 85025; 81001; 87086; 74018; 74177; 99285; 96374; 96375 ×2; 96361; J2270; Q9967

== ENCOUNTER → 2021-01-05 | Outpatient (CLI) | payer MEDICARE ==
--- NOTE | 2021-01-05 15:00 | US ---
EXAMINATION TYPE: US venous doppler duplex LE RT DATE OF EXAM: 01/05/2021 2:52 PM COMPARISON: NONE CLINICAL HISTORY: M79.661 pain in limb, R22.4 swelling. Patient states she fell off a few steps from a latter and feels a pull. No redness. No swelling. Not on blood thinners. SIDE PERFORMED: Right TECHNIQUE: The lower extremity deep venous system is examined utilizing real time linear array sonog henry with graded compression, doppler sonography and color-flow sonography. VESSELS IMAGED: Common Femoral Vein Deep Femoral Vein Greater Saphenous Vein * Femoral Vein Popliteal Vein Small Saphenous Vein * Proximal Calf Veins (* superficial vessels) Right Leg: Negative for DVT IMPRESSION: No evidence for DVT.
== END | disposition home or self-care (01) ==
LOC: RADUSWWP 14:33
PROVIDERS: ATTEND Internal Medicine
DX: M79.661 Pain in right lower leg (principal); W10.8XXA Fall (on) (from) other stairs and steps, initial encounter

== ENCOUNTER 2022-08-23 11:07 | Emergency (ER) | payer MEDICARE ==
[2022-08-23 11:37] VITALS: BP 164/85; PULSE 89; RESP 18; TEMP 98
--- NOTE | 2022-08-23 11:56 | ED ---
ENT HPI - General Chief complaint: ENT Stated complaint: cough Time Seen by Provider: 08/23/22 11:47 Source: patient, family, RN notes reviewed, old records reviewed Mode of arrival: wheelchair Limitations: no limitations - History of Present Illness Initial comments: This is a nontoxic-appearing 81-year-old female, alert and oriented, brought in by family with complaints of foreign body sensation in her throat. Patient states she was taking her medications a couple of hours ago and feels like a pill is stuck in her throat. Denies any vomiting or chest pain. No difficulty breathing or swallowing. States that this has not occurred in the past. Sensation seems to be improving. MD complaint: difficulty swallowing -: hour(s) (2) Location: throat Severity scale (1-10): 0 Consistency: other (improving) - Related Data Home Medications Medication Instructions Recorded Confirmed Levothyroxine Sodium [Synthroid] 75 mcg PO DAILY 07/05/17 12/18/19 Multivitamins, Thera [Multivitamin 1 tab PO DAILY 07/05/17 12/18/19 (formulary)] Pravastatin Sodium [Pravachol] 20 mg PO HS 07/05/17 12/18/19 busPIRone HCL 15 mg PO BID 07/05/17 12/18/19 Losartan Potassium [Cozaar] 100 mg PO 1200 06/14/18 12/18/19 Omeprazole 20 mg PO DAILY 06/14/18 12/18/19 Cholecalciferol [Vitamin D3 (25 1,000 unit PO DAILY 12/18/19 12/18/19 Mcg = 1000 Iu)] Docusate [Colace] 100 mg PO BID PRN 12/18/19 12/18/19 HYDROcodone/APAP 5-325MG [[place] 1 tab PO BID PRN 12/18/19 12/18/19 5-325] Ibuprofen [Motrin] 600 mg PO Q6H PRN 12/18/19 12/18/19 Ubidecarenone [Co Q-10] 100 mg PO DAILY 12/18/19 12/18/19 dilTIAZem HCL [Cartia Xt] 180 mg PO DAILY 12/18/19 12/18/19 Allergies Allergy/AdvReac Type Severity Reaction Status Date / Time No Known Allergies Allergy Verified 08/23/22 11:37 Review of Systems ROS Statement: Those systems with pertinent positive or pertinent negative responses have been documented in the HPI. ROS Other: All systems not noted in ROS Statement are negative. Past Medical History Past Medical History: Hypertension Additional Past Medical History / Comment(s): VARICOSE VEINS, KLEBSIELLA PNEUMONIAE IN URINE- TAKING RX PER DR PERSAUD., CYSTOCELE History of Any Multi-Drug Resistant Organisms: None Reported Date of last positivie culture/infection: None MDRO Source:: None Past Surgical History: No Surgical Hx Reported Additional Past Surgical History / Comment(s): surgery for prolapsed uterus Past Anesthesia/Blood Transfusion Reactions: Postoperative Nausea & Vomiting (PONV) Past Psychological History: No Psychological Hx Reported Smoking Status: Never smoker Past Alcohol Use History: None Reported Past Drug Use History: None Reported - Past Family History Mother Family Medical History: Cancer Additional Family Medical History / Comment(s): UTERINE CANCER Brother(s) Family Medical History: Cancer Additional Family Medical History / Comment(s): PROSTATE CANCER Sister(s) Family Medical History: Cancer Additional Family Medical History / Comment(s): BONE AND COLON CANCER General Exam Limitations: no limitations General appearance: alert, in no apparent distress Head exam: Present: atraumatic Eye exam: Present: normal appearance. Absent: scleral icterus, conjunctival injection, periorbital swelling ENT exam: Present: normal oropharynx, mucous membranes moist Expanded Mouth exam: Present: tongue normal, tongue elevation. Absent: drooling, trismus, muffled voice Throat exam: negative: tonsillar erythema, tonsillomegaly, tonsillar exudate, R peritonsillar mass, L peritonsillar mass Neck exam: Present: normal inspection, full ROM. Absent: tenderness, meningismus, lymphadenopathy, thyromegaly Respiratory exam: Present: normal lung sounds bilaterally. Absent: accessory muscle use Cardiovascular Exam: Present: regular rate GI/Abdominal exam: Present: soft Neurological exam: Present: alert, oriented X3 Psychiatric exam: Present: normal affect, normal mood Skin exam: Present: warm, dry, normal color. Absent: cyanosis, diaphoretic, petechiae, pallor Course Vital Signs 08/23/22 11:34 Temperature 98 F Pulse Rate 89 Respiratory 18 Rate Blood Pressure 164/85 O2 Sat by Pulse 95 Oximetry Medical Decision Making - Medical Decision Making Soft tissue neck x-ray shows no esophageal obstruction. Trachea is midline. Radiologist interpretation prevertebral soft tissue structures within normal limits. Multilevel degenerative disc disease and facet arthropathy with 3 mm anterolisthesis C4 and C5 Chest x-ray interpreted by me shows no evidence of focal consolidation, cardiac silhouette within normal size. Radiologist interpretation no acute process. Correlate for COPD. She is tolerating oral fluids without any difficulty. States the sensation has resolved. Patient discharged home with family, agreeable to follow up with primary care doctor this week. Directed to return to the emergency room with any new or concerning symptoms. Case discussed with Dr. Cruz Was pt. sent in by a medical professional or institution (, [facility], [facility], urgent care, hospital, or fci...) When possible be specific @ -No Did you speak to anyone other than the patient for history (EMS, parent, family, police, friend...)? What history was obtained from this source @ -family at bedside Did you review nursing and triage notes (agree or disagree)? Why? @ -I reviewed and agree with nursing and triage notes Were old charts reviewed (outside hosp., previous admission, EMS record, old EKG, old radiological studies, urgent care reports/EKG's, fci records)? Report findings @ -No old charts were reviewed Differential Diagnosis (chest pain, altered mental status, abdominal pain women, abdominal pain men, vaginal bleeding, weakness, fever, dyspnea, syncope, headach e, dizziness, GI bleed, back pain, seizure, CVA, palpatations, mental health, musculoskeletal)? @ -Esophageal foreign body, esophageal stricture, epiglottitis, peritonsillar abscess, strep pharyngitis, this is not an all inclusive list EKG interpreted by me (3pts min.). @ -n/a X-rays interpreted by me (1pt min.). @ -Yes as above CT interpreted by me (1pt min.). @ -None done U/S interpreted by me (1pt. min.). @ -None done What testing was considered but not performed or refused? (CT, X-rays, U/S, labs)? Why? @ -None What meds were considered but not given or refused? Why? @ -None Did you discuss the management of the patient with other professionals (professionals i.e. , [facility], [facility], lab, RT, psych nurse, psych social worker, internal grinding machine operator, teacher, chief medical officer, case management director)? Give summary @ -No Was smoking cessation discussed for >3mins.? @ -No Was critical care preformed (if so, how long)? @ -No Were there social determinants of health that impacted care today? How? (Homelessness, low income, unemployed, alcoholism, drug addiction, transportation, low edu. Level, literacy, decrease access to med. care, fpc, rehab)? @ -[No] Was there de-escalation of care discussed even if they declined (Discuss DNR or withdrawal of care, Hospice)? DNR status @ -[No] What co-morbidities impacted this encounter? (DM, HTN, Smoking, COPD, CAD, Cancer, CVA, ARF, Chemo, Hep., AIDS, mental health diagnosis, sleep apnea, morbid obesity)? @ -HTN Was patient admitted / discharged? Hospital course, mention meds given and route, prescriptions, significant lab abnormalities, going to OR and other pertinent info. @ -Discharged Undiagnosed new problem with uncertain prognosis? @ -[No] Drug Therapy requiring intensive monitoring for toxicity (Heparin, Nitro, Insulin, Cardizem)? @ -[No] Were any procedures done? @ -[No] Diagnosis/symptom? @ -Esophageal foreign body sensation Acute, or Chronic, or Acute on Chronic? @ -Acute Uncomplicated (without systemic symptoms) or Complicated (systemic symptoms)? @ -Uncomplicated Side effects of treatment? @ -[No] Exacerbation, Progression, or Severe Exacerbation? @ -[No] Poses a threat to life or bodily function? How? (Chest pain, [place], SC, pneumonia, PE, COPD, DKA, ARF, appy, cholecystitis, CVA, Diverticulitis, Homicidal, Suicidal, threat to staff... and all critical care pts) @ -[No] Disposition Clinical Impression: Sore throat Disposition: HOME SELF-CARE Condition: Good Instructions (If sedation given, give patient instructions): Pharyngitis (ED) Additional Instructions: Increase your fluid intake. Eat soft foods for the next 24 hours. Follow-up with primary care doctor as needed. Return to the emergency room if any new or concerning symptoms including inability to swallow, difficulty breathing or fevers. Is patient prescribed a controlled substance at d/c from ED?: No Referrals: Georgia Mtz MD [Primary Care Provider] - 1-2 days Time of Disposition: 14:15
--- NOTE | 2022-08-23 13:01 | XR ---
EXAMINATION TYPE: XR chest 2V DATE OF EXAM: 08/23/2022 COMPARISON: 07/05/2017 TECHNIQUE: PA and lateral views submitted. HISTORY: Cough FINDINGS: The lungs are clear and there is no pneumothorax, pleural effusion, or focal pneumonia. Heart size normal and no overt failure. Osseous structures demonstrate hypertrophic and degenerative changes of the spine. Biapical pleural thickening. Hyperinflation suggests COPD. IMPRESSION: 1. No acute process. Correlate for COPD.
--- NOTE | 2022-08-23 13:58 | XR ---
EXAMINATION TYPE: XR soft tissue neck DATE OF EXAM: 08/23/2022 COMPARISON: NONE HISTORY: Dysphasia TECHNIQUE: Four views are submitted. FINDINGS: The odontoid is intact. There are no compression deformities. The prevertebral soft tissue structur es are within normal limits. There is diffuse osteopenia there is a anterior listhesis of C4 on C5 m easuring 3 mm. There is severe degenerative disc disease C4-5, C5-6 and C6-C7. There is multilevel fa cet arthropathy. Calcifications soft tissue the neck and noted there is biapical pleural thickening. Epiglottis normal. IMPRESSION: 1. Prevertebral soft tissue structures within normal limits. 2. Multilevel degenerative disc disease and facet arthropathy with 3 mm anterior listhesis C4 and C5.
== END 2022-08-23 14:31 | disposition home or self-care (01) ==
LOC: EC 11:07
DX: J02.9 Acute pharyngitis, unspecified (principal); I10 Essential (primary) hypertension; Z79.899 Other long term (current) drug therapy
CPT/HCPCS: 70360; 71046; 99283

== ENCOUNTER 2022-08-25 12:42 | Inpatient (IN) | payer MEDICARE ==
[2022-08-25] MEDS ORDERED: FLUTICASONE 50MCG/SPRAY NASAL 16GM EA NOSTRIL STA (15:09)
[2022-08-25] MEDS ORDERED: IBUPROFEN 400 MG TAB PO STA (15:09)
--- NOTE | 2022-08-25 15:57 | XR ---
EXAMINATION TYPE: XR chest 2V DATE OF EXAM: 08/25/2022 3:53 PM COMPARISON: Chest radiographs from 08/23/2022 TECHNIQUE: XR chest 2V Frontal and lateral views of the chest. CLINICAL INDICATION:Female, 81 years old with history of cough; FINDINGS: Lungs/Pleura: There is flattening of the diaphragm with increased lucency of the lungs. No evidence o f pneumothorax, pleural effusion or focal consolidation. Chronic senescent parenchymal change. Pulmonary vascularity: Unremarkable. Heart/mediastinum: Cardiomediastinal silhouette is unremarkable. Atherosclerotic calcifications are seen in the aorta. Musculoskeletal: No acute osseous pathology. IMPRESSION: 1. No acute cardiopulmonary disease process. 2. COPD changes.
[2022-08-25 16:40] LABS: ALT 37 U/L (4-34); AST 47 U/L (14-36); African American GFR (CKD) >90 (>60 ml/min/1.73 sqM); Albumin 4.5 g/dL (3.5-5.0); Alkaline Phosphatase 70 U/L (38-126); Anion Gap 11 mmol/L; Blood Urea Nitrogen 14 mg/dL (7-17); Calcium 9.5 mg/dL (8.4-10.2); Carbon Dioxide 24 mmol/L (22-30); Chloride 76 mmol/L (98-107); Glucose 126 mg/dL (74-99); Non-African American GFR(CKD) 90 (>60 ml/min/1.73 sqM); Potassium 4.3 mmol/L (3.5-5.1); Total Bilirubin 2.1 mg/dL (0.2-1.3); Total Protein 7.1 g/dL (6.3-8.2)
[2022-08-25 16:41] LABS: Appearance,Urine Cloudy (Clear); Bilirubin,Urine Negative (Negative); Blood,Urine Negative (Negative); Color,Urine Yellow; Glucose,Urine (UA) Negative (Negative); Ketones,Urine 2+ (Negative); Leukocyte Esterase,Urine Trace (Negative); Mucus,Urine Rare /hpf; Nitrite,Urine Negative (Negative); Protein,Urine 1+ (Negative); RBC,Urine 10 /hpf (0-5); Specific Gravity,Urine 1.016 (1.001-1.035); Squamous Epithelial Cell,Urine 7 /hpf (0-4); Urobilinogen,Urine <2.0 mg/dL (<2.0); WBC,Urine 3 /hpf (0-5)
[2022-08-25 16:42] LABS: Sodium 111 mmol/L (137-145)
[2022-08-25 16:43] LABS: Basophils % (A) 0 %; Eosinophils % (A) 0 %; HCT 41.4 % (34.0-46.0); HGB 14.9 gm/dL (11.4-16.0); Hyperchromasia Slight; Lymphocytes # (A) 1.1 k/uL (1.0-4.8); Lymphocytes % (A) 12 %; MCH 31.9 pg (25.0-35.0); MCHC 35.9 g/dL (31.0-37.0); MCV 88.7 fL (80.0-100.0); Mean Platelet Volume 7.5; Monocytes # (A) 0.6 k/uL (0-1.0); Monocytes % (A) 6 %; Neutrophils # (A) 7.7 k/uL (1.3-7.7); Neutrophils % (A) 81 %; Platelet Count 324 k/uL (150-450); RBC 4.67 m/uL (3.80-5.40); RDW 12.2 % (11.5-15.5); WBC 9.5 k/uL (3.8-10.6)
[2022-08-25] MEDS ORDERED: ONDANSETRON 4 MG/2 ML VIAL IVP STA (16:52)
[2022-08-25] MEDS ORDERED: SODIUM CHLORIDE 0.9% 1,000 ML IV STA ×2 (16:52→18:40)
[2022-08-25] MEDS ORDERED: SODIUM CHLORIDE 0.9% 500 ML 500 ML IV ONE (16:57)
[2022-08-25] MEDS ORDERED: NALOXONE 0.4 MG/ML 1 ML VIAL IV PRN (17:20)
[2022-08-25 17:22] LABS: RBC Morphology Normal
[2022-08-25] MEDS: busPIRone HCl 5 MG TAB PO SCH (21:12)
[2022-08-25] MEDS: PRAVASTATIN SODIUM 20 MG TAB PO SCH (21:12)
[2022-08-26 00:24] LABS: ALT 26 U/L (4-34); AST 32 U/L (14-36); African American GFR (CKD) >90 (>60 ml/min/1.73 sqM); Albumin 2.4 g/dL (3.5-5.0); Alkaline Phosphatase 38 U/L (38-126); Anion Gap 5 mmol/L; Blood Urea Nitrogen 12 mg/dL (7-17); Carbon Dioxide 16 mmol/L (22-30); Chloride 97 mmol/L (98-107); Glucose 89 mg/dL (74-99); Non-African American GFR(CKD) >90 (>60 ml/min/1.73 sqM); Potassium 2.8 mmol/L (3.5-5.1); Total Bilirubin 1.3 mg/dL (0.2-1.3); Total Protein 4.4 g/dL (6.3-8.2)
[2022-08-26 00:48] LABS: Sodium 118 mmol/L (137-145)
[2022-08-26 00:49] LABS: Calcium 5.8 mg/dL (8.4-10.2)
[2022-08-26] MEDS: KETOROLAC 15 MG/ML 1 ML VIAL IVP PRN (01:40)
[2022-08-26] MEDS ORDERED: Potassium Replacement Protocol 1 EACH MISC MISCELLANE PRN (03:02)
[2022-08-26] MEDS: POTASSIUM CHLORIDE ER 20 MEQ TAB.ER PO SCH ×3 (03:15→05:17)
[2022-08-26] MEDS: POTASSIUM CHLORIDE 10 MEQ in WATER FOR INJECTION 1 100ML.BAG IVPB SCH ×6 (03:15→10:50)
[2022-08-26] MEDS: SODIUM CHLORIDE 3%(HYPERTONIC) 500 ML IV SCH (06:46)
[2022-08-26] MEDS: LEVOTHYROXINE 75 MCG TAB PO SCH (07:03)
[2022-08-26] MEDS: DILTIAZEM CD 180 MG CAP.ER.24H PO SCH (09:41)
[2022-08-26] MEDS: busPIRone HCl 5 MG TAB PO SCH ×2 (09:41→21:31)
--- NOTE | 2022-08-26 10:02 | ED ---
General Adult HPI - General Chief complaint: Upper Respiratory Infection Stated complaint: vomiting Time Seen by Provider: 08/25/22 14:28 Source: patient Mode of arrival: wheelchair Limitations: no limitations - History of Present Illness Initial comments: Patient is an 81-year-old male who presents to the emergency department with a chief complaint of upper respiratory symptoms. Patient was evaluated in the emergency department 2 days ago for foreign body sensation in her throat. Patient states that has resolved. She has developed upper respiratory symptoms along with nausea and vomiting. Patient has productive cough with clear phlegm, congestion, headache. She also has had 3 episodes of vomiting today. No recent falls or head trauma. No abdominal pain. She denies fever, chills, shortness of breath, chest pain. Severity scale (1-10): 0 - Related Data Home Medications Medication Instructions Recorded Confirmed Levothyroxine Sodium [Synthroid] 75 mcg PO DAILY 07/05/17 08/25/22 Pravastatin Sodium [Pravachol] 20 mg PO HS 07/05/17 08/25/22 busPIRone HCL 15 mg PO BID 07/05/17 08/25/22 Losartan Potassium [Cozaar] 100 mg PO DAILY 06/14/18 08/25/22 dilTIAZem HCL [Cartia Xt] 180 mg PO DAILY 12/18/19 08/25/22 Allergies Allergy/AdvReac Type Severity Reaction Status Date / Time No Known Allergies Allergy Verified 08/25/22 16:34 Review of Systems ROS Statement: Those systems with pertinent positive or pertinent negative responses have been documented in the HPI. ROS Other: All systems not noted in ROS Statement are negative. Past Medical History Past Medical History: Hypertension Additional Past Medical History / Comment(s): VARICOSE VEINS, KLEBSIELLA PNEUMONIAE IN URINE- TAKING RX PER DR PERSAUD., CYSTOCELE History of Any Multi-Drug Resistant Organisms: None Reported Date of last positivie culture/infection: None MDRO Source:: None Past Surgical History: No Surgical Hx Reported Additional Past Surgical History / Comment(s): surgery for prolapsed uterus Past Anesthesia/Blood Transfusion Reactions: Postoperative Nausea & Vomiting (PONV) Past Psychological History: No Psychological Hx Reported Smoking Status: Never smoker Past Alcohol Use History: None Reported Past Drug Use History: None Reported - Past Family History Mother Family Medical History: Cancer Additional Family Medical History / Comment(s): UTERINE CANCER Brother(s) Family Medical History: Cancer Additional Family Medical History / Comment(s): PROSTATE CANCER Sister(s) Family Medical History: Cancer Additional Family Medical History / Comment(s): BONE AND COLON CANCER General Exam Limitations: no limitations General appearance: alert, in no apparent distress Head exam: Present: atraumatic, normocephalic, normal inspection Respiratory exam: Present: normal lung sounds bilaterally. Absent: respiratory distress, wheezes, rales, rhonchi, stridor Cardiovascular Exam: Present: regular rate, normal rhythm, normal heart sounds. Absent: systolic murmur, diastolic murmur, rubs, gallop, clicks GI/Abdominal exam: Present: soft, normal bowel sounds. Absent: distended, tenderness, guarding, rebound, rigid Neurological exam: Present: alert, oriented X3, CN II-XII intact Psychiatric exam: Present: normal affect, normal mood Skin exam: Present: warm, dry, intact, normal color. Absent: rash Course Vital Signs 08/25/22 08/25/22 08/25/22 13:21 17:00 17:30 Temperature 97.9 F Pulse Rate 79 82 80 Pulse Rate [ Imaging Tech ] Respiratory 20 20 19 Rate Blood Pressure 178/78 182/90 181/93 O2 Sat by Pulse 96 95 94 L Oximetry 08/25/22 08/26/22 08/26/22 20:00 00:00 04:00 Temperature 98 F 98.4 F Pulse Rate 82 84 80 Pulse Rate [ Imaging Tech ] Respiratory 16 16 16 Rate Blood Pressure 166/84 162/80 160/79 O2 Sat by Pulse 95 95 97 Oximetry 08/26/22 07:17 Temperature 98.5 F Pulse Rate Pulse Rate [ 76 Imaging Tech ] Respiratory 16 Rate Blood Pressure O2 Sat by Pulse 97 Oximetry Medical Decision Making - Medical Decision Making Was pt. sent in by a medical professional or institution (, PA, COAGULATING DRYING SUPERVISOR, urgent care, hospital, or senior living...) When possible be specific @ -[No] Did you speak to anyone other than the patient for history (EMS, parent, family, police, friend...)? What history was obtained from this source @ -Yes, daughter who is concerned that patient is more weak than normal. Did you review nursing and triage notes (agree or disagree)? Why? @ -[I reviewed and agree with nursing and triage notes] Were old charts reviewed (outside hosp., previous admission, EMS record, old EKG, old radiological studies, urgent care reports/EKG's, senior living records)? Report findings @ -[No old charts were reviewed] Differential Diagnosis (chest pain, altered mental status, abdominal pain women, abdominal pain men, vaginal bleeding, weakness, fever, dyspnea, syncope, headache, dizziness, GI bleed, back pain, seizure, CVA, palpatations, mental health)? @ -Differential Weakness: Upper respiratory infection, Hypoglycemia, shock, sepsis, hyponatremia, anemia, infection, PA, ETOH, adverse medicine reaction, overdose, stroke, this is not meant to be an all-inclusive list. EKG interpreted by me (3pts min.). @ -[As above] X-rays interpreted by me (1pt min.). @ -Yes, chest x-ray negative for acute process. CT interpreted by me (1pt min.). @ -[None done] U/S interpreted by me (1pt. min.). @ -[None done] What testing was considered but not performed or refused? (CT, X-rays, U/S, labs)? Why? @ -[None] What meds were considered but not given or refused? Why? @ -[None] Did you discuss the management of the patient with other professionals (professionals i.e. , PA, COAGULATING DRYING SUPERVISOR, lab, RT, psych nurse, social service agency director, sexual health physician, teacher, commanding officer homicide squad, caser)? Give summary @ -[No] Was smoking cessation discussed for >3mins.? @ -[No] Was critical care preformed (if so, how long)? @ -[No] Were there social determinants of health that impacted care today? How? (Homelessness, low income, unemployed, alcoholism, drug addiction, transportation, low edu. Level, literacy, decrease access to med. care, usp, rehab)? @ -[No] Was there de-escalation of care discussed even if they declined (Discuss DNR or withdrawal of care, Hospice)? DNR status @ -[No] What co-morbidities impacted this encounter? (DM, HTN, Smoking, COPD, CAD, Cancer, CVA, ARF, Chemo, Hep., AIDS, mental health diagnosis, sleep apnea, morbid obesity)? @ -[None] Was patient admitted / discharged? Hospital course, mention meds given and route, prescriptions, significant lab abnormalities, going to OR and other pertinent info. @ -Patient presenting with upper respiratory symptoms, weakness, vomiting. Laboratory studies obtained. There is significant hyponatremia at 111. Potassium is within normal limits at 4.3. Patient given normal saline bolus and maintenance fluids. Patient alert and oriented she remained hemodynamically stable. She did not have a further episodes of vomiting in the emergency department. Case discussed with Nohemi from [facility] who accepts admission. Dr. De Leon did get in touch with ICU. Undiagnosed new problem with uncertain prognosis? @ -[No] Drug Therapy requiring intensive monitoring for toxicity (Heparin, Nitro, Insulin, Cardizem)? @ -[No] Were any procedures done? @ -[No] Diagnosis/symptom? @ -Upper respiratory symptoms, weakness, hyponatremia Acute, or Chronic, or Acute on Chronic? @ -Acute Uncomplicated (without systemic symptoms) or Complicated (systemic symptoms)? @ -Uncomplicated Side effects of treatment? @ -[No] Exacerbation, Progression, or Severe Exacerbation? @ -[No] Poses a threat to life or bodily function? How? (Chest pain, USA, PA, pneumonia, PE, COPD, DKA, ARF, appy, cholecystitis, CVA, Diverticulitis, Homicidal, Suicidal, threat to staff... and all critical care pts) @ -yes Dr. De Leon is my attending - Lab Data Result diagrams: 08/25/22 16:11 08/26/22 06:54 Lab Results 08/25/22 08/25/22 08/25/22 Range/Units 14:36 14:36 16:11 WBC 9.5 (3.8-10.6) k/uL RBC 4.67 (3.80-5.40) m/uL Hgb 14.9 (11.4-16.0) gm/dL Hct 41.4 (34.0-46.0) % MCV 88.7 (80.0-100.0) fL MCH 31.9 (25.0-35.0) pg MCHC 35.9 (31.0-37.0) g/dL RDW 12.2 (11.5-15.5) % Plt Count 324 (150-450) k/uL MPV 7.5 Neutrophils % 81 % Lymphocytes % 12 % Monocytes % 6 % Eosinophils % 0 % Basophils % 0 % Neutrophils # 7.7 (1.3-7.7) k/uL Lymphocytes # 1.1 (1.0-4.8) k/uL Monocytes # 0.6 (0-1.0) k/uL Eosinophils # 0.0 (0-0.7) k/uL Basophils # 0.0 (0-0.2) k/uL Manual Slide Review Performed RBC Morphology Normal Hyperchromasia Slight Sodium (137-145) mmol/L Potassium (3.5-5.1) mmol/L Chloride (98-107) mmol/L Carbon Dioxide (22-30) mmol/L Anion Gap mmol/L BUN (7-17) mg/dL Creatinine (0.52-1.04) mg/dL Est GFR (CKD-EPI)AfAm (>60 ml/min/1.73 sqM) Est GFR (CKD-EPI)NonAf (>60 ml/min/1.73 sqM) Glucose (74-99) mg/dL Calcium (8.4-10.2) mg/dL Total Bilirubin (0.2-1.3) mg/dL AST (14-36) U/L ALT (4-34) U/L Alkaline Phosphatase (38-126) U/L Total Protein (6.3-8.2) g/dL Albumin (3.5-5.0) g/dL Urine Color Urine Appearance (Clear) Urine pH (5.0-8.0) Ur Specific [employer] (1.001-1.035) Urine Protein (Negative) Urine Glucose (UA) (Negative) Urine Ketones (Negative) Urine Blood (Negative) Urine Nitrite (Negative) Urine Bilirubin (Negative) Urine Urobilinogen (<2.0) mg/dL Ur Leukocyte Esterase (Negative) Urine RBC (0-5) /hpf Urine WBC (0-5) /hpf Ur Squamous Epith Cells (0-4) /hpf Urine Mucus (None) /hpf Influenza Type A (PCR) Not Detected (Not Detectd) Influenza Type B (PCR) Not Detected (Not Detectd) RSV (PCR) Not Detected (Not Detectd) SARS-CoV-2 (PCR) Not Detected (Not Detectd) Group A Strep (PCR) NOT DETECTED (Not Detectd) 08/25/22 08/25/22 Range/Units 16:11 16:19 WBC (3.8-10.6) k/uL RBC (3.80-5.40) m/uL Hgb (11.4-16.0) gm/dL Hct (34.0-46.0) % MCV (80.0-100.0) fL MCH (25.0-35.0) pg MCHC (31.0-37.0) g/dL RDW (11.5-15.5) % Plt Count (150-450) k/uL MPV Neutrophils % % Lymphocytes % % Monocytes % % Eosinophils % % Basophils % % Neutrophils # (1.3-7.7) k/uL Lymphocytes # (1.0-4.8) k/uL Monocytes # (0-1.0) k/uL Eosinophils # (0-0.7) k/uL Basophils # (0-0.2) k/uL Manual Slide Review RBC Morphology Hyperchromasia Sodium 111 L* (137-145) mmol/L Potassium 4.3 (3.5-5.1) mmol/L Chloride 76 L (98-107) mmol/L Carbon Dioxide 24 (22-30) mmol/L Anion Gap 11 mmol/L BUN 14 (7-17) mg/dL Creatinine 0.51 L (0.52-1.04) mg/dL Est GFR (CKD-EPI)AfAm >90 (>60 ml/min/1.73 sqM) Est GFR (CKD-EPI)NonAf 90 (>60 ml/min/1.73 sqM) Glucose 126 H (74-99) mg/dL Calcium 9.5 (8.4-10.2) mg/dL Total Bilirubin 2.1 H (0.2-1.3) mg/dL AST 47 H (14-36) U/L ALT 37 H (4-34) U/L Alkaline Phosphatase 70 (38-126) U/L Total Protein 7.1 (6.3-8.2) g/dL Albumin 4.5 (3.5-5.0) g/dL Urine Color Yellow Urine Appearance Cloudy H (Clear) Urine pH 7.0 (5.0-8.0) Ur Specific [employer] 1.016 (1.001-1.035) Urine Protein 1+ H (Negative) Urine Glucose (UA) Negative (Negative) Urine Ketones 2+ H (Negative) Urine Blood Negative (Negative) Urine Nitrite Negative (Negative) Urine Bilirubin Negative (Negative) Urine Urobilinogen <2.0 (<2.0) mg/dL Ur Leukocyte Esterase Trace H (Negative) Urine RBC 10 H (0-5) /hpf Urine WBC 3 (0-5) /hpf Ur Squamous Epith Cells 7 H (0-4) /hpf Urine Mucus Rare H (None) /hpf Influenza Type A (PCR) (Not Detectd) Influenza Type B (PCR) (Not Detectd) RSV (PCR) (Not Detectd) SARS-CoV-2 (PCR) (Not Detectd) Group A Strep (PCR) (Not Detectd) Disposition Clinical Impression: Hyponatremia, Upper respiratory symptom Disposition: ADMITTED IP TO THIS HOSP
--- NOTE | 2022-08-26 11:01 | P.NPCON ---
History of Present Illness - Reason for Consult hyponatremia - History of Present Illness Patient is an 81-year-old female who is admitted to the hospital with complaints of cough which started about 2 days ago with a sensation of a foreign body in her throat. Patient did admit to some nausea and vomiting as well. No history of diarrhea. No history of fever. Patient is noted to have a serum sodium of 111. Sodium increased to 118 with normal saline which was continued but 4 hours later serum sodium dropped to 109. Patient was then started on 3% saline. Patient denies any new medications that was started recently She also denies any significant pain. Patient reports having had low sodium level about 3 months ago. Maintained on Synthroid Blood pressure was not low. Urine osmolality 419 and random urine sodium was 71. Chest x-ray was unremarkable. Review of Systems As per HPI Past Medical History Past Medical History: Hypertension Additional Past Medical History / Comment(s): VARICOSE VEINS, KLEBSIELLA PNEUMONIAE IN URINE- TAKING RX PER DR PERSAUD., CYSTOCELE History of Any Multi-Drug Resistant Organisms: None Reported Date of last positivie culture/infection: None MDRO Source:: None Past Surgical History: No Surgical Hx Reported Additional Past Surgical History / Comment(s): surgery for prolapsed uterus Past Anesthesia/Blood Transfusion Reactions: Postoperative Nausea & Vomiting (PONV) Past Psychological History: No Psychological Hx Reported Smoking Status: Never smoker Past Alcohol Use History: None Reported Past Drug Use History: None Reported - Past Family History Mother Family Medical History: Cancer Additional Family Medical History / Comment(s): UTERINE CANCER Brother(s) Family Medical History: Cancer Additional Family Medical History / Comment(s): PROSTATE CANCER Sister(s) Family Medical History: Cancer Additional Family Medical History / Comment(s): BONE AND COLON CANCER Medications and Allergies Home Medications Medication Instructions Recorded Confirmed Type Levothyroxine Sodium [Synthroid] 75 mcg PO DAILY 07/05/17 08/25/22 History Pravastatin Sodium [Pravachol] 20 mg PO HS 07/05/17 08/25/22 History busPIRone HCL 15 mg PO BID 07/05/17 08/25/22 History Losartan Potassium [Cozaar] 100 mg PO DAILY 06/14/18 08/25/22 History dilTIAZem HCL [Cartia Xt] 180 mg PO DAILY 12/18/19 08/25/22 History Allergies Allergy/AdvReac Type Severity Reaction Status Date / Time No Known Allergies Allergy Verified 08/25/22 16:34 Physical Exam Vitals: Vital Signs Temp Pulse Pulse Resp BP Pulse Ox 08/26/22 07:17 98.5 F 76 16 97 08/26/22 04:00 98.4 F 80 16 160/79 97 08/26/22 00:00 84 16 162/80 95 08/25/22 20:00 98 F 82 16 166/84 95 08/25/22 17:30 80 19 181/93 94 L 08/25/22 17:00 82 20 182/90 95 08/25/22 13:21 97.9 F 79 20 178/78 96 Intake and Output 08/25/22 08/26/22 08/26/22 22:59 06:59 14:59 Output Total 100 Balance -100 Output: Urine 100 Other: # Voids 1 Patient is awake, comfortable, in no acute distress Examination of the heart S1 and S2 Examination of the lungs bilateral breath sounds are heard Abdomen is soft nontender Examination of lower extremity shows no evidence of edema SEARCH ENGINEER exam grossly intact Results - Lab Results Most recent lab results Calcium 5.8 mg/dL (8.4-10.2) L* 08/25/22 23:50 08/25/22 16:11 08/26/22 06:54 Assessment and Plan Assessment: 1. Hyponatremia initially hypovolemic and improved with saline bolus but subsequently serum sodium dropped significantly as saline was continued. Consider SIADH. Patient is currently maintained on 3% saline. Check TSH level and continue to monitor sodium every 4 hours 2. Nausea and vomiting currently improved 3. Cough with no significant abnormalities noted on chest x-ray. No history of fever 4. Hypertension blood pressure is currently controlled 5. Non-gap metabolic acidosis which was new after labs were repeated post saline bolus of 2 L. Possibly related to the IV fluids. Repeat labs. No history of diarrhea. 6. Hypokalemia related to GI fluid loss and decreased intake, status post replacement Plan: Continue 3% saline Check TSH level Repeat BMP Add oral sodium chloride tablets next Thank you for the consultation. We will continue to follow the patient with you during her hospitalization
[2022-08-26] MEDS: SODIUM CHLORIDE TAB 1 GM TAB PO SCH ×2 (11:52→21:32)
[2022-08-26 12:22] LABS: African American GFR (CKD) >90 (>60 ml/min/1.73 sqM); Anion Gap 9 mmol/L; Blood Urea Nitrogen 14 mg/dL (7-17); Calcium 8.9 mg/dL (8.4-10.2); Carbon Dioxide 17 mmol/L (22-30); Chloride 85 mmol/L (98-107); Glucose 101 mg/dL (74-99); Non-African American GFR(CKD) 88 (>60 ml/min/1.73 sqM); Potassium 5.7 mmol/L (3.5-5.1)
[2022-08-26 12:24] LABS: Sodium 111 mmol/L (137-145)
[2022-08-26 19:48] LABS: Glucose,Whole Blood 97 mg/dL (70-110)
[2022-08-26 21:01] LABS: African American GFR (CKD) >90 (>60 ml/min/1.73 sqM); Anion Gap 7 mmol/L; Blood Urea Nitrogen 12 mg/dL (7-17); Calcium 8.6 mg/dL (8.4-10.2); Carbon Dioxide 20 mmol/L (22-30); Chloride 90 mmol/L (98-107); Glucose 99 mg/dL (74-99); Non-African American GFR(CKD) >90 (>60 ml/min/1.73 sqM); Potassium 4.3 mmol/L (3.5-5.1)
[2022-08-26 21:02] LABS: Sodium 117 mmol/L (137-145)
[2022-08-26] MEDS: ACETAMINOPHEN TAB 325 MG TAB PO PRN (21:20)
[2022-08-26] MEDS: PRAVASTATIN SODIUM 20 MG TAB PO SCH (21:32)
--- NOTE | 2022-08-26 22:32 | P.HPIM ---
History of Present Illness H&P Date: 08/26/22 Chief Complaint: Upper respiratory symptoms Patient is a 81-year-old female with a known history of hypertension, hypothyroidism, hyperlipidemia, anxiety presents to ER with complaints of upper respiratory infection. She was complaining of cough and congestion for the past 2 days with a sensation of foreign body in her throat. She was also covering of nausea and vomiting, nonbloody. Cough with clear sputum production and headache. No complaints of shortness of breath. No fever no chills. No chest pain. Patient did have 3 episodes of vomiting today. Currently denies any abdominal pain. No diarrhea. Patient is currently not on any diuretics at home. No new medications recently. Soft tissue neck x-ray showed prevertebral soft tissue structures within normal limits. Multilevel degenerative disc disease and facet osteopathy with 3 mm anterior listhesis C4 and C5. Chest x-ray showed no acute cardiopulmonary disease. COPD changes. Laboratory data showed WBC 9.5 hemoglobin 14.9 and platelets 324 Sodium level 111, potassium 4.3, chloride 76, BUN 14 and creatinine 0.51 and blood sugar is 126. Serum Hospital day 235 Calcium 9.5 bilirubin 2.1 AST 47 ALT 37 alk phos 70 and albumin 4.5 Urine osmolality 419 and urine sodium 71 Blood pressure is 178/78 on admission and pulse ox 96% on room air. Urinalysis showed cloudy with 2+ ketones and trace leukocyte esterase Review of Systems Constitutional: Patient denies any fever or chills . Generalized weakness. Abdomen: Patient diarrhea . Cardiovascular: Patient denies any chest pain or short of breath no palpitations. Respiratory: Patient cough with clear sputum. Cough and congestion.. No shortness of breath Neurologic: Patient denied any numbness or tingling headache. Musculoskeletal: Patient denies any complaints of joint swelling or deformity. Skin: Negative Psychiatric: Negative Endocrine: No heat or cold intolerance. No recent weight gain. Genitourinary: No dysuria or hematuria. All other 14 point ROS negative except the above Past Medical History Past Medical History: Hypertension Additional Past Medical History / Comment(s): VARICOSE VEINS, KLEBSIELLA PNEUMONIAE IN URINE- TAKING RX PER DR PERSAUD., CYSTOCELE History of Any Multi-Drug Resistant Organisms: None Reported Date of last positivie culture/infection: None MDRO Source:: None Past Surgical History: No Surgical Hx Reported Additional Past Surgical History / Comment(s): surgery for prolapsed uterus Past Anesthesia/Blood Transfusion Reactions: Postoperative Nausea & Vomiting (PONV) Past Psychological History: No Psychological Hx Reported Smoking Status: Never smoker Past Alcohol Use History: None Reported Past Drug Use History: None Reported - Past Family History Mother Family Medical History: Cancer Additional Family Medical History / Comment(s): UTERINE CANCER Brother(s) Family Medical History: Cancer Additional Family Medical History / Comment(s): PROSTATE CANCER Sister(s) Family Medical History: Cancer Additional Family Medical History / Comment(s): BONE AND COLON CANCER Medications and Allergies Home Medications Medication Instructions Recorded Confirmed Type Levothyroxine Sodium [Synthroid] 75 mcg PO DAILY 07/05/17 08/25/22 History Pravastatin Sodium [Pravachol] 20 mg PO HS 07/05/17 08/25/22 History RX: busPIRone HCL 15 mg PO BID 07/05/17 08/25/22 History Losartan Potassium [Cozaar] 100 mg PO DAILY 06/14/18 08/25/22 History dilTIAZem HCL [Cartia Xt] 180 mg PO DAILY 12/18/19 08/25/22 History Allergies Allergy/AdvReac Type Severity Reaction Status Date / Time No Known Allergies Allergy Verified 08/25/22 16:34 Physical Exam Vitals: Vital Signs Temp Pulse Pulse Resp BP Pulse Ox 08/26/22 11:00 80 16 96 08/26/22 07:17 98.5 F 76 16 97 08/26/22 04:00 98.4 F 80 16 160/79 97 08/26/22 00:00 84 16 162/80 95 08/25/22 20:00 98 F 82 16 166/84 95 08/25/22 17:30 80 19 181/93 94 L 08/25/22 17:00 82 20 182/90 95 08/25/22 13:21 97.9 F 79 20 178/78 96 Intake and Output 08/25/22 08/26/22 08/26/22 22:59 06:59 14:59 Output Total 100 Balance -100 Output: Urine 100 Other: # Voids 1 PHYSICAL EXAMINATION: Patient is lying in the bed comfortably, no acute distress, awake alert and oriented.. HEENT: Normocephalic. Neck is supple. Pupils reactive. Nostrils clear. Oral cavity is moist. Neck reveals no JVD, carotid bruits, or thyromegaly. CHEST EXAMINATION: Trachea is central. Symmetrical expansion. Lung ceballos clear to auscultation and percussion. CARDIAC: Normal S1, S2 with no gallops. No murmurs ABDOMEN: Soft. Bowel sounds present. Nontender. No organomegaly. No abdominal bruits. Extremities: reveal no edema. No clubbing or cyanosis Neurologically awake, alert, oriented, with well-coordinated movements. No focal deficits noted Skin: No rash or skin lesions. Psychiatric: Coperative. Nonsuicidal, Musculoskeletal: No joint swelling or deformity. Normal range of motion. Results CBC & Chem 7: 08/25/22 16:11 08/26/22 20:13 Labs: Abnormal Lab Results - Last 24 Hours (Table) 08/25/22 08/25/22 08/25/22 Range/Units 16:11 16:19 18:24 Sodium 111 L* (137-145) mmol/L Potassium (3.5-5.1) mmol/L Chloride 76 L (98-107) mmol/L Carbon Dioxide (22-30) mmol/L Creatinine 0.51 L (0.52-1.04) mg/dL Glucose 126 H (74-99) mg/dL Osmolality 235 L* (280-301) mosm/kg Calcium (8.4-10.2) mg/dL Total Bilirubin 2.1 H (0.2-1.3) mg/dL AST 47 H (14-36) U/L ALT 37 H (4-34) U/L Total Protein (6.3-8.2) g/dL Albumin (3.5-5.0) g/dL Urine Appearance Cloudy H (Clear) Urine Protein 1+ H (Negative) Urine Ketones 2+ H (Negative) Ur Leukocyte Esterase Trace H (Negative) Urine RBC 10 H (0-5) /hpf Ur Squamous Epith Cells 7 H (0-4) /hpf Urine Mucus Rare H (None) /hpf 08/25/22 08/26/22 08/26/22 Range/Units 23:50 02:47 06:54 Sodium 118 L* 109 L* 109 L* (137-145) mmol/L Potassium 2.8 L (3.5-5.1) mmol/L Chloride 97 L (98-107) mmol/L Carbon Dioxide 16 L (22-30) mmol/L Creatinine 0.33 L (0.52-1.04) mg/dL Glucose (74-99) mg/dL Osmolality (280-301) mosm/kg Calcium 5.8 L* (8.4-10.2) mg/dL Total Bilirubin (0.2-1.3) mg/dL AST (14-36) U/L ALT (4-34) U/L Total Protein 4.4 L (6.3-8.2) g/dL Albumin 2.4 L (3.5-5.0) g/dL Urine Appearance (Clear) Urine Protein (Negative) Urine Ketones (Negative) Ur Leukocyte Esterase (Negative) Urine RBC (0-5) /hpf Ur Squamous Epith Cells (0-4) /hpf Urine Mucus (None) /hpf Thrombosis Risk Factor Assmnt - DVT/VTE Prophylaxis DVT/VTE Prophylaxis: Pharmacologic Prophylaxis ordered Assessment and Plan Assessment: Hyponatremia with sodium level 111 on admission likely hypoosmolar hypovolemic. serum osmolality 235. Sodium level dropped to 109 with fluid bolus with Nacl, possible SIADH is being considered. Patient was started on 3% saline and salt tablets. Hypokalemia potassium 2.8 likely due to GI loss Nausea and vomiting improved now. Cough and congestion upper respiratory symptoms. Soft tissue neck showed prevertebral soft tissue within normal limits. Hypertension. Uncontrolled on admission. Hypothyroidism DVT prophylaxis with heparin subcu Plan: Patient is currently on hypertonic saline and sodium tablets. Continue to monitor sodium level every 4 hourly. Symptomatic management for nausea and vomiting. Improved now. Continue with home blood pressure medications Cardizem and losartan. Nephrology is on board. Follow-up closely. Time with Patient: Greater than 30
[2022-08-27] MEDS: ACETAMINOPHEN TAB 325 MG TAB PO PRN ×2 (04:19→21:19)
[2022-08-27] MEDS: SODIUM CHLORIDE 3%(HYPERTONIC) 500 ML IV SCH (04:19)
[2022-08-27 05:49] LABS: Basophils % (A) 0 %; Eosinophils % (A) 1 %; HCT 38.4 % (34.0-46.0); HGB 13.9 gm/dL (11.4-16.0); Lymphocytes # (A) 0.9 k/uL (1.0-4.8); Lymphocytes % (A) 10 %; MCH 32.9 pg (25.0-35.0); MCHC 36.1 g/dL (31.0-37.0); MCV 91.1 fL (80.0-100.0); Mean Platelet Volume 6.9; Monocytes # (A) 0.8 k/uL (0-1.0); Monocytes % (A) 9 %; Neutrophils # (A) 7.1 k/uL (1.3-7.7); Neutrophils % (A) 79 %; Platelet Count 304 k/uL (150-450); RBC 4.22 m/uL (3.80-5.40); RDW 11.9 % (11.5-15.5)
[2022-08-27 06:01] LABS: African American GFR (CKD) >90 (>60 ml/min/1.73 sqM); Anion Gap 5 mmol/L; Blood Urea Nitrogen 11 mg/dL (7-17); Calcium 8.2 mg/dL (8.4-10.2); Carbon Dioxide 21 mmol/L (22-30); Chloride 93 mmol/L (98-107); Glucose 91 mg/dL (74-99); Magnesium 1.7 mg/dL (1.6-2.3); Non-African American GFR(CKD) >90 (>60 ml/min/1.73 sqM); Potassium 3.8 mmol/L (3.5-5.1)
[2022-08-27 06:12] LABS: Sodium 119 mmol/L (137-145)
[2022-08-27] MEDS: LEVOTHYROXINE 75 MCG TAB PO SCH (06:48)
[2022-08-27] MEDS ORDERED: POTASSIUM CHLORIDE ER 20 MEQ TAB.ER PO SCH ×2 (07:00→19:00)
--- NOTE | 2022-08-27 09:30 | P.PN ---
Subjective Patient is seen for follow-up for hyponatremia. She is status post 3% saline. It was discontinued this morning. Serum sodium increased to 119. Initial sodium was 111 and then dropped to 109. Urine osmolality 419 and random urine sodium of 71. Maintained on sodium chloride tabs. No significant abnormalities noted on chest x-ray. TSH was within range. Objective - Vital Signs Vital signs: Vital Signs Temp 98.2 F 08/27/22 04:00 Pulse 85 08/27/22 07:00 Resp 12 08/27/22 07:00 BP 152/70 08/27/22 07:00 Pulse Ox 96 08/27/22 07:00 FiO2 Intake & Output 08/26/22 08/27/22 08/27/22 18:59 06:59 18:59 Intake Total 375 0 Output Total 1300 1150 Balance -1300 -775 0 Weight 56.2 kg Intake: Intake, IV Titration 275 0 Amount Sodium Chloride 3%( 275 0 Hypertonic) 500 ml @ 25 mls/hr IV .Q20H [facility] Rx#: [id number] Oral 100 Output: Urine 1300 1150 Other: Voiding Method Bedside Commode # Voids 4 - Exam Patient is awake, comfortable, alert oriented 3 Examination of the heart S1 and S2 Examination of the lungs bilateral breath sounds are heard Examination of the lower extremities shows no significant edema ELEVATOR TECHNICIAN exam grossly intact - Labs CBC & Chem 7: 08/27/22 04:10 08/27/22 04:10 Labs: Abnormal Lab Results - Last 24 Hours (Table) 08/26/22 08/26/22 08/26/22 Range/Units 11:42 15:27 20:13 Lymphocytes # (1.0-4.8) k/uL Sodium 111 L* 115 L* 117 L* (137-145) mmol/L Potassium 5.7 H (3.5-5.1) mmol/L Chloride 85 L 90 L (98-107) mmol/L Carbon Dioxide 17 L 20 L (22-30) mmol/L Creatinine 0.46 L (0.52-1.04) mg/dL Glucose 101 H (74-99) mg/dL Calcium (8.4-10.2) mg/dL 08/26/22 08/27/22 08/27/22 Range/Units 23:12 04:10 04:10 Lymphocytes # 0.9 L (1.0-4.8) k/uL Sodium 117 L* 119 L* (137-145) mmol/L Potassium (3.5-5.1) mmol/L Chloride 93 L (98-107) mmol/L Carbon Dioxide 21 L (22-30) mmol/L Creatinine 0.43 L (0.52-1.04) mg/dL Glucose (74-99) mg/dL Calcium 8.2 L (8.4-10.2) mg/dL Assessment and Plan Assessment: 1. Hyponatremia initially hypovolemic and improved with saline bolus but subsequently serum sodium dropped significantly as saline was continued. Consider SIADH. Patient is status post 3% saline. Urine sodium of 71 and urine osmolality was 419 2. Nausea and vomiting currently improved 3. Cough with no significant abnormalities noted on chest x-ray. No history of fever 4. Hypertension blood pressure is currently controlled 5. Non-gap metabolic acidosis which was new after labs were repeated post saline bolus of 2 L. Possibly related to the IV fluids. Repeat labs. No history of diarrhea. 6. Hypokalemia related to GI fluid loss and decreased intake, status post replacement Plan: Follow-up on repeat sodium levels Continue with sodium chloride tablets for now
[2022-08-27] MEDS: HEPARIN SODIUM,PORCINE/PF 5,000 UNIT/0.5 ML SYRINGE SQ SCH ×2 (09:58→21:12)
[2022-08-27] MEDS: SODIUM CHLORIDE TAB 1 GM TAB PO SCH ×2 (09:59→21:24)
[2022-08-27] MEDS: DILTIAZEM CD 180 MG CAP.ER.24H PO SCH (09:59)
[2022-08-27] MEDS: busPIRone HCl 5 MG TAB PO SCH ×2 (10:00→21:12)
[2022-08-27] MEDS: LOSARTAN 50 MG TAB PO SCH (10:01)
--- NOTE | 2022-08-27 10:26 | P.PN ---
Subjective Progress Note Date: 08/27/22 Dr. Mtz resuming care on 08/27/2022 Patient originally presented to the ER with complaints of cough and congestion along with episodes of nausea and vomiting. Upon further examination patient was found to be hyponatremic with sodium level of 111. Patient is not on any current diuretics at home. Chest x-ray was negative. Patient also found to be hypokalemic potassium 2.8. Patient has past medical history of hypertension and urinary tract infection. Patient was admitted to the intensive care unit where she was started on normal saline. Sodium initially improved but then declined while maintained on IV fluid. Concerns of possible SIADH patient was started on 3% per nephrology services. Mentation intact no further episodes of GI fluid loss On 08/27/2022 patient's alert and oriented 3. Patient remains in the intensive care unit. Per nursing staff nephrology services have stopped 3% sodium this a.m. 119. Plan to recheck sodium level per nephrology services at this time patient denies chest pain or shortness breath. Patient denies nausea vomiting diarrhea. Patient denies any urinary burning or frequency Objective - Vital Signs Vital signs: Vital Signs Temp 98.2 F 08/27/22 04:00 Pulse 85 08/27/22 07:00 Resp 12 08/27/22 07:00 BP 152/70 08/27/22 07:00 Pulse Ox 96 08/27/22 07:00 FiO2 Intake & Output 08/26/22 08/27/22 08/27/22 18:59 06:59 18:59 Intake Total 375 0 Output Total 1300 1150 Balance -1300 -775 0 Weight 56.2 kg Intake: Intake, IV Titration 275 0 Amount Sodium Chloride 3%( 275 0 Hypertonic) 500 ml @ 25 mls/hr IV .Q20H [facility] Rx#: [id number] Oral 100 Output: Urine 1300 1150 Other: Voiding Method Bedside Commode # Voids 4 - Exam Head normocephalic Neck supple Lungs clear to auscultation bilaterally no wheezing or crackles Heart regular rate and rhythm S1-S2, no rub or gallop Abdomen is soft nontender nondistended positive bowel sounds no hepatosplenomegaly Extremities no edema Neuro alert and orientated to 3 - Labs CBC & Chem 7: 08/27/22 04:10 08/27/22 04:10 Labs: Abnormal Lab Results - Last 24 Hours (Table) 04/13/23 04/13/23 04/13/23 Range/Units 11:42 15:27 20:13 Lymphocytes # (1.0-4.8) k/uL Sodium 111 L* 115 L* 117 L* (137-145) mmol/L Potassium 5.7 H (3.5-5.1) mmol/L Chloride 85 L 90 L (98-107) mmol/L Carbon Dioxide 17 L 20 L (22-30) mmol/L Creatinine 0.46 L (0.52-1.04) mg/dL Glucose 101 H (74-99) mg/dL Calcium (8.4-10.2) mg/dL 08/26/22 08/27/22 08/27/22 Range/Units 23:12 04:10 04:10 Lymphocytes # 0.9 L (1.0-4.8) k/uL Sodium 117 L* 119 L* (137-145) mmol/L Potassium (3.5-5.1) mmol/L Chloride 93 L (98-107) mmol/L Carbon Dioxide 21 L (22-30) mmol/L Creatinine 0.43 L (0.52-1.04) mg/dL Glucose (74-99) mg/dL Calcium 8.2 L (8.4-10.2) mg/dL Assessment and Plan Assessment: 1. Hyponatremia possible concerns of SIADH. Patient was started on 3%. Nephrology services are following 2. Hypokalemia. Resolved 3. Nausea and vomiting. This has improved 4. Upper respiratory symptoms. Chest x-ray negative 5. History of essential hypertension 6. Hypothyroidism DVT prophylaxis heparin. Patient remains in the intensive care unit Nephrology services following 3% has been DC'd per nephrology repeat level to be ordered per nephrology
[2022-08-27 12:34] LABS: Potassium 3.8 mmol/L (3.5-5.1)
[2022-08-27] MEDS: PRAVASTATIN SODIUM 20 MG TAB PO SCH (21:13)
[2022-08-27] MEDS: KETOROLAC 15 MG/ML 1 ML VIAL IVP PRN (22:56)
[2022-08-28 05:17] LABS: Basophils % (A) 0 %; Eosinophils # (A) 0.1 k/uL (0-0.7); Eosinophils % (A) 1 %; HCT 38.4 % (34.0-46.0); Lymphocytes # (A) 1.1 k/uL (1.0-4.8); Lymphocytes % (A) 13 %; MCHC 36.4 g/dL (31.0-37.0); MCV 90.7 fL (80.0-100.0); Mean Platelet Volume 6.7; Monocytes # (A) 0.7 k/uL (0-1.0); Monocytes % (A) 9 %; Neutrophils # (A) 6.5 k/uL (1.3-7.7); Neutrophils % (A) 76 %; Platelet Count 277 k/uL (150-450); RBC 4.23 m/uL (3.80-5.40); RDW 12.3 % (11.5-15.5); WBC 8.5 k/uL (3.8-10.6)
[2022-08-28 05:33] LABS: African American GFR (CKD) >90 (>60 ml/min/1.73 sqM); Anion Gap 4 mmol/L; Blood Urea Nitrogen 13 mg/dL (7-17); Calcium 8.6 mg/dL (8.4-10.2); Carbon Dioxide 23 mmol/L (22-30); Chloride 94 mmol/L (98-107); Glucose 104 mg/dL (74-99); Non-African American GFR(CKD) >90 (>60 ml/min/1.73 sqM); Potassium 3.9 mmol/L (3.5-5.1); Sodium 121 mmol/L (137-145)
[2022-08-28] MEDS: LEVOTHYROXINE 75 MCG TAB PO SCH (06:44)
[2022-08-28] MEDS: busPIRone HCl 5 MG TAB PO SCH ×2 (08:49→22:28)
[2022-08-28] MEDS: HEPARIN SODIUM,PORCINE/PF 5,000 UNIT/0.5 ML SYRINGE SQ SCH ×2 (08:50→22:28)
[2022-08-28] MEDS: DILTIAZEM CD 180 MG CAP.ER.24H PO SCH (08:50)
[2022-08-28] MEDS: SODIUM CHLORIDE TAB 1 GM TAB PO SCH (08:50)
[2022-08-28] MEDS: LOSARTAN 50 MG TAB PO SCH (08:50)
[2022-08-28] MEDS: ACETAMINOPHEN TAB 325 MG TAB PO PRN ×2 (08:50→22:29)
[2022-08-28] MEDS ORDERED: TOLVAPTAN 15 MG TABLET PO ONE (11:00)
[2022-08-28] MEDS ORDERED: RX INFO: IV CONTRAST WAS GIVEN 1 EACH MISC MISCELLANE PRN (12:24)
--- NOTE | 2022-08-28 12:24 | P.PN ---
Subjective Progress Note Date: 08/28/22 Dr. Mtz resuming care on 08/27/2022 Patient originally presented to the ER with complaints of cough and congestion along with episodes of nausea and vomiting. Upon further examination patient was found to be hyponatremic with sodium level of 111. Patient is not on any current diuretics at home. Chest x-ray was negative. Patient also found to be hypokalemic potassium 2.8. Patient has past medical history of hypertension and urinary tract infection. Patient was admitted to the intensive care unit where she was started on normal saline. Sodium initially improved but then declined while maintained on IV fluid. Concerns of possible SIADH patient was started on 3% per nephrology services. Mentation intact no further episodes of GI fluid loss On 08/27/2022 patient's alert and oriented 3. Patient remains in the intensive care unit. Per nursing staff nephrology services have stopped 3% sodium this a.m. 119. Plan to recheck sodium level per nephrology services at this time patient denies chest pain or shortness breath. Patient denies nausea vomiting diarrhea. Patient denies any urinary burning or frequency On 08/28/2022 patient was seen and examined on the medical floor she is alert and oriented 3 in no apparent distress there is no fever or chills no headache or dizziness no chest pain no shortness of breath no cough no nausea or vomiting no abdominal pain no diarrhea and no urinary symptoms. Patient is complaining of restless leg with cramps at night, otherwise she denies any complaints at this time. Case was discussed was Dr. Campos, recommendation at this time is to continue with salt tablets, no IV fluids, and check computed tomography scan of the chest to rule out any cause for SIADH Objective - Vital Signs Vital signs: Vital Signs Temp 97.5 F L 08/28/22 08:00 Pulse 74 08/28/22 08:00 Resp 18 08/28/22 08:00 BP 156/81 08/28/22 08:00 Pulse Ox 97 08/28/22 08:00 FiO2 Intake & Output 08/27/22 08/28/22 08/28/22 18:59 06:59 18:59 Intake Total 750 200 Output Total 1060 1175 Balance -461 -855 Intake: Intake, IV Titration 0 Amount Sodium Chloride 3%( 0 Hypertonic) 500 ml @ 25 mls/hr IV .Q20H [facility] Rx#: [id number] Oral 750 200 Output: Urine 1060 1175 Other: Voiding Method Bedside Commode Bedside Commode Bedside Commode - Exam In general patient is alert and oriented 3 in no apparent distress Head normocephalic and atraumatic Neck supple no JVD no goiter Lungs clear to auscultation bilaterally no wheezing or crackles Heart regular rate and rhythm S1-S2, no rub or gallop Abdomen is soft nontender nondistended positive bowel sounds no hepatosplenomegaly Extremities no edema Neuro no gross focal deficits - Labs CBC & Chem 7: 08/28/22 04:46 08/28/22 04:46 Labs: Abnormal Lab Results - Last 24 Hours (Table) 08/27/22 08/27/22 08/28/22 Range/Units 11:44 18:37 04:46 Sodium 120 L 120 L 121 L (137-145) mmol/L Chloride 94 L (98-107) mmol/L Creatinine 0.41 L (0.52-1.04) mg/dL Glucose 104 H (74-99) mg/dL Assessment and Plan Plan: 1. Hyponatremia possible concerns of SIADH. Patient was started on 3%. Nephrology services are following 2. Hypokalemia. Resolved 3. Nausea and vomiting. This has improved 4. Upper respiratory symptoms. Chest x-ray negative 5. History of essential hypertension 6. Hypothyroidism DVT prophylaxis heparin. Patient remains in the intensive care unit Nephrology services following 3% has been DC'd per nephrology repeat level to be ordered per nephrology Will check computed tomography scan of the chest with IV contrast, will continue to follow closely
--- NOTE | 2022-08-28 16:52 | P.PN ---
Subjective Patient is seen for follow-up for hyponatremia. She is status post 3% saline. Urine osmolality 419 and random urine sodium of 71. Maintained on sodium chloride tabs. No significant abnormalities noted on chest x-ray. TSH was within range. Sodium 121 today. No complaints. Objective - Vital Signs Vital signs: Vital Signs Temp 98.2 F 08/28/22 13:04 Pulse 66 08/28/22 13:04 Resp 16 08/28/22 13:04 BP 162/75 08/28/22 13:04 Pulse Ox 97 08/28/22 13:04 FiO2 Intake & Output 08/27/22 08/28/22 08/28/22 18:59 06:59 18:59 Intake Total 750 200 Output Total 1060 1175 Balance -310 -975 Intake: Intake, IV Titration 0 Amount Sodium Chloride 3%( 0 Hypertonic) 500 ml @ 25 mls/hr IV .Q20H [facility] Rx#: [id number] Oral 750 200 Output: Urine 1060 1175 Other: Voiding Method Bedside Commode Bedside Commode Bedside Commode - Exam Patient is awake, comfortable, alert oriented 3 Examination of the 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 Hyponatremia initially hypovolemic and improved with saline bolus but subsequently serum sodium dropped significantly as saline was continued. Consider SIADH. Patient is status post 3% saline. Urine sodium of 71 and urine osmolality was 419. Currently euvolemic. 2. Nausea and vomiting currently improved 3. Cough with no significant abnormalities noted on chest x-ray. No history of fever 4. Hypertension blood pressure is currently controlled 5. Non-gap metabolic acidosis which was new after labs were repeated post saline bolus of 2 L. Possibly related to the IV fluids. Repeat labs. No history of diarrhea. 6. Hypokalemia related to GI fluid loss and decreased intake, status post replacement Plan: Add [facility] [place] Repeat sodium later today Consider CT chest Increase protein intake. Fluid restriction
--- NOTE | 2022-08-28 16:57 | CT ---
EXAMINATION TYPE: CT chest w con DATE OF EXAM: 08/28/2022 COMPARISON: Chest x-ray 08/25/2022, CT abdomen pelvis 12/18/2019 HISTORY: SIADH CT DLP: 279.9 mGycm Automated exposure control for dose reduction was used. TECHNIQUE: CT scan of the chest is performed with IV Contrast, patient injected with 100ml mL of Isovue 300. [place] P Images are created on CT scanner and reviewed. 3D reconstructed images are created on an [employer] workstation and reviewed. FINDINGS: LUNGS: The lungs are grossly clear, there is no concerning parenchymal mass or nodule identified. Min imal posterior dependent and bibasilar atelectasis. Mild bronchiectasis of the lingula and anterior r ight middle lobe. There is no pleural effusion or pneumothorax seen. The tracheobronchial tree is p atent. MEDIASTINUM: There are no greater than 1 cm hilar or mediastinal lymph nodes. Heart is normal in siz e. No pericardial effusion is seen. Atherosclerotic calcifications of the thoracic aorta. OTHER: Soft tissues are normal in appearance. Osseous structures are intact. Hepatic steatosis. Righ t hepatic lobe hypodensity internal attenuation is consistent with a hepatic cyst. IMPRESSION: Minimal bibasilar atelectasis without evidence for acute cardiopulmonary process.
[2022-08-29] MEDS: SODIUM CHLORIDE TAB 1 GM TAB PO SCH ×2 (00:17→09:09)
[2022-08-29] MEDS: PRAVASTATIN SODIUM 20 MG TAB PO SCH ×2 (00:17→20:42)
[2022-08-29] MEDS: LEVOTHYROXINE 75 MCG TAB PO SCH (06:45)
[2022-08-29 08:51] LABS: Basophils % (A) 0 %; Eosinophils # (A) 0.1 k/uL (0-0.7); Eosinophils % (A) 2 %; HCT 38.3 % (34.0-46.0); HGB 13.2 gm/dL (11.4-16.0); Lymphocytes % (A) 13 %; MCH 32.2 pg (25.0-35.0); MCHC 34.5 g/dL (31.0-37.0); MCV 93.3 fL (80.0-100.0); Mean Platelet Volume 7.5; Monocytes # (A) 0.6 k/uL (0-1.0); Monocytes % (A) 8 %; Neutrophils # (A) 5.7 k/uL (1.3-7.7); Neutrophils % (A) 75 %; Platelet Count 302 k/uL (150-450); RDW 12.1 % (11.5-15.5); WBC 7.6 k/uL (3.8-10.6)
[2022-08-29] MEDS: busPIRone HCl 5 MG TAB PO SCH ×2 (09:08→22:47)
[2022-08-29] MEDS: LOSARTAN 50 MG TAB PO SCH (09:08)
[2022-08-29] MEDS: HEPARIN SODIUM,PORCINE/PF 5,000 UNIT/0.5 ML SYRINGE SQ SCH ×2 (09:08→20:43)
[2022-08-29] MEDS: DILTIAZEM CD 180 MG CAP.ER.24H PO SCH (09:08)
[2022-08-29 09:34] LABS: ALT 43 U/L (4-34); AST 32 U/L (14-36); African American GFR (CKD) >90 (>60 ml/min/1.73 sqM); Albumin 3.5 g/dL (3.5-5.0); Albumin/Globulin Ratio 1.5; Alkaline Phosphatase 51 U/L (38-126); Anion Gap 7 mmol/L; Blood Urea Nitrogen 18 mg/dL (7-17); Calcium 8.9 mg/dL (8.4-10.2); Carbon Dioxide 22 mmol/L (22-30); Chloride 97 mmol/L (98-107); Globulin 2.3 g/dL; Glucose 109 mg/dL (74-99); Non-African American GFR(CKD) 90 (>60 ml/min/1.73 sqM); Potassium 3.9 mmol/L (3.5-5.1); Sodium 126 mmol/L (137-145); Total Protein 5.8 g/dL (6.3-8.2)
--- NOTE | 2022-08-29 10:19 | P.PN ---
Subjective Progress Note Date: 08/29/22 Dr. Mtz resuming care on 08/27/2022 Patient originally presented to the ER with complaints of cough and congestion along with episodes of nausea and vomiting. Upon further examination patient was found to be hyponatremic with sodium level of 111. Patient is not on any current diuretics at home. Chest x-ray was negative. Patient also found to be hypokalemic potassium 2.8. Patient has past medical history of hypertension and urinary tract infection. Patient was admitted to the intensive care unit where she was started on normal saline. Sodium initially improved but then declined while maintained on IV fluid. Concerns of possible SIADH patient was started on 3% per nephrology services. Mentation intact no further episodes of GI fluid loss On 08/27/2022 patient's alert and oriented 3. Patient remains in the intensive care unit. Per nursing staff nephrology services have stopped 3% sodium this a.m. 119. Plan to recheck sodium level per nephrology services at this time patient denies chest pain or shortness breath. Patient denies nausea vomiting diarrhea. Patient denies any urinary burning or frequency On 08/28/2022 patient was seen and examined on the medical floor she is alert and oriented 3 in no apparent distress there is no fever or chills no headache or dizziness no chest pain no shortness of breath no cough no nausea or vomiting no abdominal pain no diarrhea and no urinary symptoms. Patient is complaining of restless leg with cramps at night, otherwise she denies any complaints at this time. Case was discussed was Dr. Campos, recommendation at this time is to continue with salt tablets, no IV fluids, and check computed tomography scan of the chest to rule out any cause for SIADH On 08/29/2022 patient's alert and oriented 3 patient denies chest pain or shortness. Patient denies diarrhea. Denies any urinary burning or frequency. Awaiting sodium level. Computed tomography scan of the chest completed showing minimal bibasilar atelectasis without evidence for acute cardiopulmonary process. Patient remains on sodium chloride tabs. Nephrology services are following Objective - Vital Signs Vital signs: Vital Signs Temp 97.6 F 08/29/22 07:51 Pulse 66 08/29/22 07:51 Resp 16 08/29/22 07:51 BP 154/74 08/29/22 07:51 Pulse Ox 95 08/29/22 07:51 FiO2 Intake & Output 08/28/22 08/29/22 08/29/22 18:59 06:59 18:59 Other: Voiding Method Bedside Commode Bedside Commode # Voids 2 2 - Exam Head normocephalic Neck supple Lungs clear to auscultation bilaterally no wheezing or crackles Heart regular rate and rhythm S1-S2, no rub or gallop Abdomen is soft nontender nondistended positive bowel sounds no hepatosplenomegaly Extremities no edema Neuro alert and orientated to 3 - Labs CBC & Chem 7: 08/29/22 07:49 08/29/22 07:49 Labs: Abnormal Lab Results - Last 24 Hours (Table) 08/28/22 08/29/22 Range/Units 16:51 07:49 Sodium 124 L 126 L (137-145) mmol/L Chloride 97 L (98-107) mmol/L BUN 18 H (7-17) mg/dL Creatinine 0.51 L (0.52-1.04) mg/dL Glucose 109 H (74-99) mg/dL ALT 43 H (4-34) U/L Total Protein 5.8 L (6.3-8.2) g/dL Assessment and Plan Assessment: 1. Hyponatremia possible concerns of SIADH. Patient was started on 3%. N ephrology services are following 2. Hypokalemia. Resolved 3. Nausea and vomiting. This has improved 4. Upper respiratory symptoms. Chest x-ray negative 5. History of essential hypertension 6. Hypothyroidism DVT prophylaxis heparin. Nephrology services following 3% has been DC'd per nephrology repeat level to be ordered per nephrology
[2022-08-29] MEDS ORDERED: TOLVAPTAN 15 MG TABLET PO ONE (10:44)
--- NOTE | 2022-08-29 11:00 | P.PN ---
Subjective Patient is seen for follow-up for hyponatremia. She is status post 3% saline. Urine osmolality 419 and random urine sodium of 71. Maintained on sodium chloride tabs. No significant abnormalities noted on chest x-ray. TSH was within range. Status post [facility]a for last 2 days. Sodium 126 today. 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 Hyponatremia secondary to SIADH Patient is status post 3% saline. Urine sodium of 71 and urine osmolality was 419. Currently euvolemic. Improving with [facility]sca 2. Nausea and vomiting currently improved 3. Cough with no significant abnormalities noted on chest x-ray. No history of fever 4. Hypertension blood pressure is currently controlled 5. Non-gap metabolic acidosis which was new after labs were repeated post saline bolus of 2 L. Possibly related to the IV fluids. Repeat labs. No history of diarrhea. 6. Hypokalemia related to GI fluid loss and decreased intake, status post replacement Plan: Repeat [facility]sca DC sodium chloride tabs due to hypertension Repeat sodium in a.m.
[2022-08-30] MEDS: LEVOTHYROXINE 75 MCG TAB PO SCH (06:07)
[2022-08-30 09:00] LABS: Basophils % (A) 0.9 %; Eosinophils # (A) 0.42 X 10*3/uL (0.04-0.35); Eosinophils % (A) 3.6 %; HCT 38.5 % (37.2-46.3); HGB 13.1 g/dL (12.0-15.0); Immature Grans, Automated 0.6 %; Lymphocytes # (A) 1.65 X 10*3/uL (0.90-5.00); Lymphocytes % (A) 14.2 %; MCH 32.5 pg (27.0-32.0); MCV 95.5 fL (80.0-97.0); Mean Platelet Volume 10.1 fL (9.5-12.2); Monocytes # (A) 1.05 X 10*3/uL (0.20-1.00); NRBC Per 100 WBC 0 /100 WBCS (0.0-0.0); Neutrophils # (A) 8.33 X 10*3/uL (1.80-7.70); Neutrophils % (A) 71.7 %; Platelet Count 308 X 10*3/uL (140-440); RBC 4.03 X 10*6/uL (4.10-5.20); RDW 12.5 % (11.5-14.5); WBC 11.62 X 10*3/uL (4.50-10.00)
[2022-08-30 09:16] LABS: African American GFR (CKD) 92.9 (60.0-200.0); Albumin 3.8 g/dL (3.8-4.9); Albumin/Globulin Ratio 1.9 (1.60-3.17); Anion Gap 8.9 mmol/L (10.00-18.00); BUN/Creat Ratio 29.71 Ratio (12.00-20.00); Blood Urea Nitrogen 20.8 mg/dL (9.0-27.0); Calcium 9.3 mg/dL (8.7-10.3); Carbon Dioxide 20.1 mmol/L (20.0-27.5); Non-African American GFR(CKD) 80.1 (60.0-200.0); Potassium 4.5 mmol/L (3.5-5.5); Total Bilirubin 0.4 mg/dL (0.30-1.20); Total Protein 5.8 g/dL (6.2-8.2)
[2022-08-30] MEDS: busPIRone HCl 5 MG TAB PO SCH (09:16)
[2022-08-30] MEDS: DILTIAZEM CD 180 MG CAP.ER.24H PO SCH (09:17)
[2022-08-30] MEDS: HEPARIN SODIUM,PORCINE/PF 5,000 UNIT/0.5 ML SYRINGE SQ SCH (09:17)
[2022-08-30] MEDS: LOSARTAN 50 MG TAB PO SCH (09:17)
[2022-08-30 11:32] LABS: Appearance,Urine Cloudy (Clear); Bacteria,Urine Few /hpf; Bilirubin,Urine Negative (Negative); Blood,Urine Negative (Negative); Color,Urine Yellow; Glucose,Urine (UA) Negative (Negative); Ketones,Urine Negative (Negative); Leukocyte Esterase,Urine Negative (Negative); Mucus,Urine Occasional /hpf; Nitrite,Urine Negative (Negative); PH, Urine 6.5 (5.0-8.0); Protein,Urine Trace (Negative); RBC,Urine 1 /hpf (0-5); Squamous Epithelial Cell,Urine 10 /hpf (0-4); Urobilinogen,Urine <2.0 mg/dL (<2.0); WBC,Urine 1 /hpf (0-5)
[2022-08-30] MEDS ORDERED: hydrALAZINE HCL 25 MG TAB PO SCH (12:15)
--- NOTE | 2022-08-30 12:15 | P.PN ---
Subjective Patient is seen in follow-up for hyponatremia. Sodium level improving. Oral intake also better. No vomiting or diarrhea. Wants to go home. Vital signs are stable. General: No acute distress. HEENT: Head exam is unremarkable. LUNGS: No audible rhonchi or wheezes. HEART: Rate and Rhythm are regular. ABDOMEN: Nontender. EXTREMITITES: No edema. Objective - Vital Signs Vital signs: Vital Signs Temp 97.5 F L 08/30/22 07:37 Pulse 72 08/30/22 07:37 Resp 18 08/30/22 07:37 BP 155/83 08/30/22 07:37 Pulse Ox 96 08/30/22 07:37 FiO2 Intake & Output 08/29/22 08/30/22 08/30/22 18:59 06:59 18:59 Output Total 0 Balance 0 Output: Stool 0 Other: Voiding Method Bedside Commode # Voids 3 2 # Bowel Movements 0 - Labs CBC & Chem 7: 08/30/22 03:36 08/30/22 03:36 Labs: Abnormal Lab Results - Last 24 Hours (Table) 08/30/22 08/30/22 08/30/22 Range/Units 03:36 03:36 11:09 WBC 11.62 H (4.50-10.00) X 10*3/uL RBC 4.03 L (4.10-5.20) X 10*6/uL MCH 32.5 H (27.0-32.0) pg Immature Gran # 0.07 H (0.00-0.04) X 10*3/uL Neutrophils # 8.33 H (1.80-7.70) X 10*3/uL Monocytes # 1.05 H (0.20-1.00) X 10*3/uL Eosinophils # 0.42 H (0.04-0.35) X 10*3/uL Sodium 130 L (135-145) mmol/L Anion Gap 8.90 L (10.00-18.00) mmol/L BUN/Creatinine Ratio 29.71 H (12.00-20.00) Ratio Glucose 124 H (70-110) mg/dL Total Protein 5.8 L (6.2-8.2) g/dL Urine Appearance Cloudy H (Clear) Urine Protein Trace H (Negative) Ur Squamous Epith Cells 10 H (0-4) /hpf Urine Bacteria Few H (None) /hpf Urine Mucus Occasional H (None) /hpf Assessment and Plan Plan: Assessment: 1. Hyponatremia secondary to SIADH. Improved. TSH normal. Urine osmolality 419. Urine sodium 71. Also on NSAIDs which can induce SIADH. Status post [facility] this admission. 2. Benign hypertension. 3. Hypokalemia on admission. Now resolved. Plan: Stop NSAIDs. Add hydralazine. Hold for systolic blood pressure less than 125. Advised patient to maintain fluid restriction of less than 50 ounces per day. Encouraged increased protein intake.
[2022-08-30 12:58] VITALS: BP 158/74; PULSE 68; RESP 16; TEMP 98
--- NOTE | 2022-08-30 13:31 | P.DS ---
Providers Date of admission: 08/25/22 16:56 Expected date of discharge: 08/30/22 Attending physician: Georgia Mtz Consults: 08/26/22 05:00 Consult Physician Urgent Consulting Provider: Stephanie Campos Consult Reason/Comments: hyponatremia, hypocalcemia Do you want consulting provider notified?: Yes Primary care physician: Georgia Mtz [place] [facility] Course: Diagnosis on discharge: 1. Hyponatremia related to SIADH. Patient was started on 3%. Nephrology services are following 2. Hypokalemia. Resolved 3. Nausea and vomiting. This has improved 4. Upper respiratory symptoms. Chest x-ray negative 5. History of essential hypertension 6. Hypothyroidism Hospital course: Dr. Mtz resuming care on 08/27/2022 Patient originally presented to the ER with complaints of cough and congestion along with episodes of nausea and vomiting. Upon further examination patient was found to be hyponatremic with sodium level of 111. Patient is not on any current diuretics at home. Chest x-ray was negative. Patient also found to be hypokalemic potassium 2.8. Patient has past medical history of hypertension and urinary tract infection. Patient was admitted to the intensive care unit where she was started on normal saline. Sodium initially improved but then declined while maintained on IV fluid. Concerns of possible SIADH patient was started on 3% per nephrology services. Mentation intact no further episodes of GI fluid loss On 08/27/2022 patient's alert and oriented 3. Patient remains in the intensive care unit. Per nursing staff nephrology services have stopped 3% sodium this a.m. 119. Plan to recheck sodium level per nephrology services at this time patient denies chest pain or shortness breath. Patient denies nausea vomiting diarrhea. Patient denies any urinary burning or frequency On 08/28/2022 patient was seen and examined on the medical floor she is alert and oriented 3 in no apparent distress there is no fever or chills no headache or dizziness no chest pain no shortness of breath no cough no nausea or vomiting no abdominal pain no diarrhea and no urinary symptoms. Patient is complaining of restless leg with cramps at night, otherwise she denies any complaints at this time. Case was discussed was Dr. Campos, recommendation at this time is to continue with salt tablets, no IV fluids, and check computed tomography scan of the chest to rule out any cause for SIADH On 08/29/2022 patient's alert and oriented 3 patient denies chest pain or shortness. Patient denies diarrhea. Denies any urinary burning or frequency. Awaiting sodium level. Computed tomography scan of the chest completed showing minimal bibasilar atelectasis without evidence for acute cardiopulmonary proce ss. Patient remains on sodium chloride tabs. Nephrology services are following On 08/30/2022 patient was seen and examined on the medical floor, she is alert and oriented 3 in no distress. patient denies chest pain or shortness of breath. Patient denies diarrhea. Denies any urinary burning or frequency, sodium level up to 130 Computed tomography scan of the chest completed showing minimal bibasilar atelectasis without evidence for acute cardiopulmonary process. Nephrology services are following, patient was cleared for discharge. Patient Condition at Discharge: Stable Plan - Discharge Summary Discharge Rx Participant: No New Discharge Prescriptions: New rOPINIRole HCL [Requip] 0.75 mg PO HS 30 Days #30 tab hydrALAZINE HCL [Apresoline] 25 mg PO BID tab Continue Levothyroxine Sodium [Synthroid] 75 mcg PO DAILY busPIRone HCL 15 mg PO BID Pravastatin Sodium [Pravachol] 20 mg PO HS Losartan Potassium [Cozaar] 100 mg PO DAILY dilTIAZem HCL [Cartia Xt] 180 mg PO DAILY Discharge Medication List Levothyroxine Sodium [Synthroid] 75 mcg PO DAILY 07/05/17 [History] Pravastatin Sodium [Pravachol] 20 mg PO HS 07/05/17 [History] busPIRone HCL 15 mg PO BID 07/05/17 [History] Losartan Potassium [Cozaar] 100 mg PO DAILY 06/14/18 [History] dilTIAZem HCL [Cartia Xt] 180 mg PO DAILY 12/18/19 [History] hydrALAZINE HCL [Apresoline] 25 mg PO BID tab 08/30/22 [Rx] rOPINIRole HCL [Requip] 0.75 mg PO HS 30 Days #30 tab 08/30/22 [Rx] Follow up Appointment(s)/Referral(s): Georgia Mtz MD [Primary Care Provider] - 1 Week Discharge Disposition: HOME SELF-CARE
== END 2022-08-30 15:43 | disposition home or self-care (01) | DRG 644 ==
LOC: EC 12:42 → 3SCARD 16:56 → 2SICU 08-26 06:19 → 5NMEDONC 08-28 10:04
PROVIDERS: ADMIT Internal Medicine; ATTEND Internal Medicine
DX: E22.2 Syndrome of inappropriate secretion of antidiuretic hormone (principal); E87.20 Acidosis, unspecified; E83.51 Hypocalcemia; J44.9 Chronic obstructive pulmonary disease, unspecified; Z20.822 Contact with and (suspected) exposure to COVID-19; E87.6 Hypokalemia; E86.1 Hypovolemia; E78.5 Hyperlipidemia, unspecified; I10 Essential (primary) hypertension; E03.9 Hypothyroidism, unspecified; G25.81 Restless legs syndrome; F41.9 Anxiety disorder, unspecified; K59.00 Constipation, unspecified; R05.9 Cough, unspecified; I83.90 Asymptomatic varicose veins of unspecified lower extremity; Z79.890 Hormone replacement therapy; Z79.899 Other long term (current) drug therapy; Z87.440 Personal history of urinary (tract) infections
CPT/HCPCS: 36415; 71046; 71260; 80048; 80053; 81001; 83735; 83930; 83935; 84132; 84295; 84300; 84443; 85025; 87636; 87651; 96361; 96365; 96366; 96375; 99285